=== PATIENT | female | born 1935 | race Caucasian/White ===

== ENCOUNTER 2016-05-19 08:52 | Emergency (ER) | payer OTHER ==
[2016-05-19] MEDS ORDERED: ONDANSETRON 4 MG ORAL DISINTEGRATING TAB (S0181) As Ordered ONE (09:56)
[2016-05-19] MEDS ORDERED: MECLIZINE 12.5 MG TAB As Ordered ONE (09:56)
[2016-05-19 10:15] LABS: BASO # 0.1 K/mm3 (0.0-0.2); BASO % 0.8 % (0.0-1.0); EOS # 0.1 K/mm3 (0.0-0.50); EOS % 1.1 % (0.0-3.0); LARGE UNSTAINED CELL # 0.1 K/mm3 (0.0-0.4); LARGE UNSTAINED CELL % 0.8 % (0.0-4.0); LYMPH # 1.9 K/mm3 (1.5-4.5); LYMPH % 17.6 % (24.0-44.0); MEAN CORPUSCULAR HEMOGLOBIN 29.5 pg (27.0-33.0); MEAN CORPUSCULAR HGB CONC 33.2 g/dl (32.0-36.5); MEAN CORPUSCULAR VOLUME 88.8 fl (80.0-96.0); MONO # 0.4 K/mm3 (0.0-0.8); MONO % 3.4 % (0.0-5.0); NEUTROPHILS % 76.3 % (36.0-66.0); PLATELET COUNT, AUTOMATED 247 k/mm3 (150-450); RED CELL DISTRIBUTION WIDTH 13.6 % (11.5-14.5); WHITE BLOOD COUNT 10.5 K/mm3 (4.0-10.0)
[2016-05-19 10:39] LABS: ANION GAP 9 MEQ/L (8-16); BLOOD UREA NITROGEN 19 MG/DL (7-18); CALCIUM LEVEL 9.4 MG/DL (8.8-10.2); CARBON DIOXIDE LEVEL 27 MEQ/L (21-32); CHLORIDE LEVEL 106 MEQ/L (98-107); CREATININE FOR GFR 0.92 MG/DL (0.55-1.02); FREE T4 1.56 NG/DL (0.76-1.46); GLOMERULAR FILTRATION RATE > 60.0 (>32); GLUCOSE, FASTING 149 MG/DL (83-110); POTASSIUM SERUM 3.7 MEQ/L (3.5-5.1); SODIUM LEVEL 142 MEQ/L (136-145)
--- NOTE | 2016-05-19 11:26 | REP ---
CT HEAD WITHOUT CONTRAST: HISTORY: Vertigo. An area of decreased attenuation is present in the left basal ganglia. This represents an old lacunar infarction. Areas of decreased attenuation are present in the periventricular white matter. This represents small vessel ischemic disease. There is no intraparenchymal hemorrhage, mass or midline shift. The ventricular system and cortical sulci as well as subarachnoid space in the posterior fossa are dilated consistent with mild volume loss. There is no extracerebral collection. Mucosal thickening is present in the left maxillary sinus. IMPRESSION: 1. Old left basal ganglia lacunar infarction. 2. Small vessel ischemic disease. 3. Mild volume loss. Signed by Preet Huang MD 05/19/2016 11:27 A
--- NOTE | 2016-05-19 14:05 | EDDOCDS ---
Nurse's Notes [facility] Name: Nika Steele Age: 81 yrs Sex: Female : 1935 Arrival Date: 05/19/2016 Time: 08:52 Bed 9 Private MD: Diagnosis: Labyrinthitis;Essential (primary) hypertension Presentation: 05/19 08:53 Presenting complaint: Patient states: states that she felt dizzy when she stood up from ml6 bed and felt dizzy, happened again today, lasted a few minutes but today states that she felt nauseated also (no LOC or vomiting). Adult Sepsis Screening: The patient does not have new or worsening altered mentation. Patient's respiratory rate is less than 22. Systolic blood pressure is greater than 100. Patient has a qSOFA score of 0- Negative Sepsis Screen. Suicide/Homicide risk assessment- the patient denies having any suicidal and/or homicidal ideations and does not present with any other emotional, behavioral or mental health complaints. Status: Patient is not a coordinator cardiopulmonary services or dependent. Transition of care: patient was not received from another setting of care. 08:53 Acuity: PATY Level 3 ml6 08:53 Method Of Arrival: Ambulance ml6 Triage Assessment: 08:56 General: Appears in no apparent distress, Behavior is appropriate for age, cooperative. ml6 Pain: Denies pain. The patient is triaged at the bedside. See Assessment in Nurses Notes section of ED record. Neurological: No deficits noted. Level of Consciousness is awake, alert, Oriented to person, place, time, Electrical Accessories I Assembler are equal bilaterally Moves all extremities. Full function Gait is steady, Speech is normal, Facial symmetry appears normal, Pupils are PERRLA. Cardiovascular: No deficits noted. Capillary refill < 3 seconds is brisk in bilateral fingers toes Heart tones S1 S2 present Edema is absent. Pulses are all present. Rhythm is regular Chest pain is denied. Respiratory: No deficits noted. Airway is patent Respiratory effort is even, unlabored, Respiratory pattern is regular, symmetrical, Breath sounds are clear bilaterally. GI: No deficits noted. Abdomen is flat, non- distended Bowel sounds present X 4 quads. Abd is soft and non tender X 4 quads. Historical: - Allergies: SULFA (SULFONAMIDES); - Home Meds: 1. Synthroid 112 mcg Oral tab 1 tab nightly (Last dose: 05/18/2016 20:00) 2. lisinopril 10 mg Oral tab 1 tab nightly (Last dose: 05/18/2016 20:00) 3. amlodipine 5 mg Oral tab 1 tab once daily (Last dose: 05/18/2016 08:00) 4. magnesium oxide 400 mg Oral tab daily (Last dose: 05/18/2016 08:00) 5. omeprazole 20 mg Oral cpDR 1 cap once daily (Last dose: 05/18/2016 08:00) 6. Cosopt 22.3-6.8 mg/mL Opht drop 1 drop 2 times per day (Last dose: 05/18/2016 20:00) 7. Xalatan 0.005 % Opht drop 1 drop once daily (Last dose: 05/18/2016 20:00) 8. Systane 0.4-0.3 % ophthalmic drop twice a day (Last dose: 05/18/2016 20:00) - PMHx: Hypertension; GERD; Hypothyroidism; Glaucoma; - PSHx: Appendectomy; Thyroidectomy; skin cancer; Cataract Surgery- Bilateral; - The history from nurses notes was reviewed: and I agree with what is documented. - Social history: Smoking status: Patient states was never smoker of tobacco. No barriers to communication noted, Speaks appropriately for age. - : The pt / caregiver states he / she is not on anticoagulants. Home medication list is obtained from the patient. - Hospitalizations: : No recent hospitalization is reported. - Exposure Risk Screening:: None identified. - Immunization history:: All immunizations up-to-date. - Family history: Not pertinent. - Social history:: the patient is a non-smoker, the patient does not drink alcohol. Screenin:50 Screening information is obtained from the patient. Fall risk: No risks identified. ml6 Assistance ADL's: requires no assistance with activities of daily living. Abuse/DV Screen: The patient / caregiver reports he/she is: not in a situation that causes fear, pain or injury. Nutritional screening: No deficits noted. Advance Directives: Currently, there is no health care proxy. home support is adequate. Assessment: 08:53 General: see triage. ml6 10:00 General: Appears in no apparent distress, comfortable, Behavior is appropriate for age, ml6 cooperative. Pain: Denies pain. Neurological: No deficits noted. Level of Consciousness is awake, alert, Oriented to person, place, time, Electrical Accessories I Assembler are equal bilaterally Moves all extremities. Full function Gait is steady, Speech is normal, Facial symmetry appears normal, Pupils are PERRLA. Cardiovascular: No deficits noted. Capillary refill < 3 seconds is brisk in bilateral fingers toes Heart tones S1 S2 present Edema is absent. Pulses are all present. Respiratory: No deficits noted. Airway is patent Respiratory effort is even, unlabored, Respiratory pattern is regular, symmetrical, Breath sounds are clear bilaterally. GI: No deficits noted. Abdomen is flat, Bowel sounds present X 4 quads. 11:52 General: pt ambulated 100 feet without difficulty. Pt reports her dizziness is much dsf better and nausea has resolved. pt sitting up in the stretcher eating a box lunch . 12:47 General: Appears pt ate 100% of lunch. pt denies nausea or pain . dsf 13:47 Adult Sepsis Screening: The patient does not have new or worsening altered mentation. dsf Patient's respiratory rate is less than 22. Systolic blood pressure is greater than 100. Patient has a qSOFA score of 0- Negative Sepsis Screen. General: Appears in no apparent distress, comfortable, Behavior is appropriate for age, cooperative. Neurological: Level of Consciousness is awake, alert. Cardiovascular: Capillary refill < 3 seconds. Respiratory: Airway is patent Respiratory effort is even, unlabored, Respiratory pattern is regular, symmetrical. Derm: Skin is pink, warm & dry. 14:02 General: Appears in no apparent distress, comfortable, Behavior is appropriate for age, dsf cooperative. Neurological: Level of Consciousness is awake, alert. Cardiovascular: Capillary refill < 3 seconds. Respiratory: Airway is patent Respiratory effort is even, unlabored, Respiratory pattern is regular, symmetrical. Derm: Skin is pink, warm & dry. Vital Signs: 08:56 BP 216 / 84 Supine (auto/); Pulse 66; Resp 18; Temp 96.8(O); Pulse Ox 98% on R/A; ml6 Weight 77.11 kg (R); Height 5 ft. 3 in. (160.02 cm) (R); Pain 0/10; 08:58 BP 193 / 80 Sitting (auto/); Pulse 68; ml6 08:59 BP 202 / 79 Standing (auto/); Pulse 72; ml6 11:01 BP 178 / 85 (auto/); dsf 11:01 Pulse 62 MON; Pulse Ox 92% ; dsf 11:01 BP 189 / 77; Pulse 62; Resp 16; Temp 97.4(O); Pulse Ox 98% on R/A; Pain 0/10; dsf 11:31 BP 205 / 79 (auto/); dsf 11:31 Pulse 58 MON; Pulse Ox 99% ; dsf 13:42 BP 181 / 75; Pulse 86; Resp 16; Temp 97.7(O); Pulse Ox 98% on R/A; jo3 08:56 Body Mass Index 30.11 (77.11 kg, 160.02 cm) ml6 Vitals: 09:10 Log In Time N/A - ambulance arrival. ml6 ED Course: 08:53 Patient visited by Blessing Aguilar, Test Examiner. deg 08:53 Estelle Clements,RN is Primary Nurse. ml6 08:53 Jered Meadows, RN is Primary Nurse. ml6 08:53 Patient moved to Waiting deg 08:53 Patient moved to 9 ml6 08:53 Inserted peripheral IV: 20gauge IV in left forearm and blood collected. Patient ml6 tolerated the procedure well. 09:04 Triage Initiated ml6 09:10 Patient visited by Ximena Gee. dem1 09:10 EKG done. (by ED staff). Reviewed by Ankush Foss MD. dem1 09:35 Primary Nurse role handed off by Estelle Clements,ARIES pc 09:36 Ankush Foss MD is Attending Physician. pc 09:41 Patient visited by David Miner DO. gk1 09:50 Patient visited by Ankush Foss MD. pc 10:11 TSH with Free T4 Sent. ml6 10:11 MED Profile Sent. ml6 10:11 CBC with Diff Sent. ml6 10:11 Troponin Sent. ml6 10:16 Patient visited by Jered Meadows, ARIES. ml6 10:40 Patient visited by Jered Meadows RN. ml6 11:03 [facility] Payment Agreement was scanned into Direct Access Software and attached to record. mm15 11:11 Patient visited by Jered Meadows, ARIES. ml6 11:37 CT Head Without Contrast Returned. EDMS 11:56 Patient visited by Tia Nagel,ARIES. dsf 12:48 Patient visited by Tia Nagel RN. dsf 13:49 Kevin Herzog PA is Referral Physician. pc 14:03 The patient / caregiver is instructed regarding the plan of care and ED course. dsf 14:03 Discontinued lock intact, bleeding controlled, pressure dressing applied, No dsf redness/swelling at site. No procedures done that require assistance. Administered Medications: 09:53 Drug: Ondansetron ODT 4 mg [ondansetron 4 mg disintegrating tablet (1 tabs)] Route: PO; ml6 09:53 Drug: Meclizine 25 mg [meclizine 12.5 mg tablet (2 tabs)] Route: PO; ml6 Order Results: Lab Order: CBC with Diff; SPEC'M 05/19/16 10:08 Test: WHITE BLOOD COUNT; Value: 10.5; Range: 4.0-10.0; Abnormal: Above high normal; Units: K/mm3; Status: F Test: RED BLOOD COUNT; Value: 5.52; Range: 4.00-5.40; Abnormal: Above high normal; Units: M/mm3; Status: F Test: HEMOGLOBIN; Value: 16.3; Range: 12.0-16.0; Abnormal: Above high normal; Units: g/dl; Status: F Test: HEMATOCRIT; Value: 49.0; Range: 36.0-47.0; Abnormal: Above high normal; Units: %; Status: F Test: MEAN CORPUSCULAR VOLUME; Value: 88.8; Range: 80.0-96.0; Units: fl; Status: F Test: MEAN CORPUSCULAR HEMOGLOBIN; Value: 29.5; Range: 27.0-33.0; Units: pg; Status: F Test: MEAN CORPUSCULAR HGB CONC; Value: 33.2; Range: 32.0-36.5; Units: g/dl; Status: F Test: RED CELL DISTRIBUTION WIDTH; Value: 13.6; Range: 11.5-14.5; Units: %; Status: F Test: PLATELET COUNT, AUTOMATED; Value: 247; Range: 150-450; Units: k/mm3; Status: F Test: NEUTROPHILS %; Value: 76.3; Range: 36.0-66.0; Abnormal: Above high normal; Units: %; Status: F Test: LYMPH %; Value: 17.6; Range: 24.0-44.0; Abnormal: Below low normal; Units: %; Status: F Test: MONO %; Value: 3.4; Range: 0.0-5.0; Units: %; Status: F Test: EOS %; Value: 1.1; Range: 0.0-3.0; Units: %; Status: F Test: BASO %; Value: 0.8; Range: 0.0-1.0; Units: %; Status: F Test: LARGE UNSTAINED CELL %; Value: 0.8; Range: 0.0-4.0; Units: %; Status: F Test: NEUTROPHILS #; Value: 8.0; Range: 1.8-7.7; Abnormal: Above high normal; Units: K/mm3; Status: F Test: LYMPH #; Value: 1.9; Range: 1.5-4.5; Units: K/mm3; Status: F Test: MONO #; Value: 0.4; Range: 0.0-0.8; Units: K/mm3; Status: F Test: EOS #; Value: 0.1; Range: 0.0-0.50; Units: K/mm3; Status: F Test: BASO #; Value: 0.1; Range: 0.0-0.2; Units: K/mm3; Status: F Test: LARGE UNSTAINED CELL #; Value: 0.1; Range: 0.0-0.4; Units: K/mm3; Status: F Lab Order: [facility]; [facility] 05/19/16 10:08 Test: GLUCOSE, FASTING; Value: 149; Range: 83-110; Abnormal: Above high normal; Units: MG/DL; Status: F Test: BLOOD UREA NITROGEN; Value: 19; Range: 7-18; Abnormal: Above high normal; Units: MG/DL; Status: F Test: CREATININE FOR GFR; Value: 0.92; Range: 0.55-1.02; Units: MG/DL; Status: F Test: GLOMERULAR FILTRATION RATE; Value: > 60.0; Range: >32; Status: F Test: SODIUM LEVEL; Value: 142; Range: 136-145; Units: MEQ/L; Status: F Test: POTASSIUM SERUM; Value: 3.7; Range: 3.5-5.1; Units: MEQ/L; Status: F Test: CHLORIDE LEVEL; Value: 106; Range: 98-107; Units: MEQ/L; Status: F Test: CARBON DIOXIDE LEVEL; Value: 27; Range: 21-32; Units: MEQ/L; Status: F Test: ANION GAP; Value: 9; Range: 8-16; Units: MEQ/L; Status: F Test: CALCIUM LEVEL; Value: 9.4; Range: 8.8-10.2; Units: MG/DL; Status: F Test Note: ; Units are mL/min/1.73 m2 Chronic Kidney Disease Staging per NKF: Stage I & II GFR >=60 Normal to Mildly Decreased Stage III GFR 30-59 Moderately Decreased Stage IV GFR 15-29 Severely Decreased Stage V GFR <15 Very Little GFR Left ESRD GFR <15 on PSYCHIATRIC ORDERLY Lab Order: TSH with Free T4; 05/19/16 10:08 Test: THYROID STIMULATING HORMONE; Value: 0.875; Range: 0.358-3.740; Units: uIU/ML; Status: F Test: FREE T4; Value: 1.56; Range: 0.76-1.46; Abnormal: Above high normal; Units: NG/DL; Status: F Lab Order: CIP; 05/19/16 10:08 Test: CPK CREATINE PHOSPHOKINASE; Value: 42; Range: 26-192; Units: U/L; Status: F Test: CK-MB VALUE MASS; Value: 1.0; Range: 0.0-3.6; Units: NG/ML; Status: F Test: MB/CK RELATIVE INDEX; Value: 2.38; Range: < OR =4; Status: F Test Note: ; DIAGNOSIS CRITERIA MMB ng/ml Relative Index (RI) NON-AMI < or = 5 N/A FOWLER ZONE > 5 < or = 4 AMI > 5 > 4 Lab Order: Troponin; 05/19/16 10:08 Test: TROPONIN I; Value: < 0.02; Range: < 0.10; Units: NG/ML; Status: F Test Note: ; Troponin I Reference Interval for [employer] LOCI: 99th Percentile= 0.00-0.045 ng/ml Risk Stratification: <= 0.10 ng/ml Decreased Risk for Adverse Clinical Events. 0.10-1.50 ng/ml Increased Risk for Adverse Clinical Events. Evaluation of additional criterion and/or repeat testing in 2-6 hours is suggested to rule out myocardial damage. >= 1.50 ng/ml Indicative of Myocardial Injury. Radiology Order: CT Head Without Contrast Test: CT Head Without Contrast REASON FOR EXAMINATION: vertigo; CT HEAD WITHOUT CONTRAST:; ; HISTORY: Vertigo.; ; An area of decreased attenuation is present in the left basal ganglia. This; represents an old lacunar infarction. Areas of decreased attenuation are present; in the periventricular white matter. This represents small vessel ischemic; disease. There is no intraparenchymal hemorrhage, mass or midline shift. The; ventricular system and cortical sulci as well as subarachnoid space in the; posterior fossa are dilated consistent with mild volume loss. There is no; extracerebral collection. Mucosal thickening is present in the left maxillary; sinus.; ; IMPRESSION:; ; 1. Old left basal ganglia lacunar infarction.; ; 2. Small vessel ischemic disease.; ; 3. Mild volume loss.; ; ; Signed by; Preet Huang MD 05/19/2016 11:27 A; Outcome: 13:49 Discharge ordered by Provider. pc 14:03 Discharge Assessment: Patient awake, alert and oriented x 3. No cognitive and/or dsf functional deficits noted. Patient verbalized understanding of disposition instructions. patient administered narcotics - no. The following High Risk Discharge criteria are identified: None. Discharged to home ambulatory. Condition: stable. Discharge instructions given to patient, Instructed on discharge instructions, follow up and referral plans. medication usage, Demonstrated understanding of instructions, medications, Pt was receptive of discharge instructions/ teaching. Prescriptions given X 2. Property sent home with patient. 14:03 CT Study completed. dsf 14:04 Patient left the ED. dsf Signatures: Dispatcher [employer] EDMS Ankush Foss MD MD pc Blessing Aguilar, Test Examiner Unit deg Shira WilkesRN RN Jered Medina RN RN ml6 Tia Nagel RN RN dsf Ximena Gee dem1 Sarah Warren mm15 David Miner, DO BERRY gk1 MTDD
--- NOTE | 2016-05-19 14:05 | EDDOCDS ---
Physician Documentation [facility] Name: Nika Steele Age: 81 yrs Sex: Female : 1935 Arrival Date: 05/19/2016 Time: 08:52 Bed 9 Private MD: Disposition: 05/19 12:42 Critical Care: Critical care not applicable. pc Disposition: 05/19/16 13:49 Discharged to Home/Self Care. Impression: Labyrinthitis, Essential (primary) hypertension. - Condition is Stable. - Discharge Instructions: Hypertension, Labyrinthitis, [id number]. - Prescriptions for Antivert 25 mg Oral Tablet - take 1 tablet by ORAL route every 8 hours As needed; 15 tablet. ZOFRAN ODT 4 mg - dissolve 1 tablet by ORAL route 4 times per day As needed do not chew, do not swallow whole; 10 tablet. - Medication Reconciliation, Local Pharmacy Hours form. - Follow up: Kevin Herzog; When: Call to arrange an appointment; Reason: Continuance of care. - Problem is new. - Symptoms have improved. HPI: 10:08 This 81 yrs old Female presents to ER via Ambulance with complaints of pc Dizziness. 10:08 The history is obtained from the patient. She stood up from bed yesterday morning and pc felt dizzy. She sat back down and "gathered myself", and was fine for the rest of the day. This morning, she rolled over in bed and became very dizzy and nauseated. She did not vomit. She lay still and the symptoms settled but not completely. She tried to stand and felt dizzy and nauseated, fell back onto the bed. She was able to walk to the bathroom but felt off-balance generally. After voiding, she used her 's walker to get around and felt fine, [id number]. She describes a "slight headache" frontally but denies any focal neurological symptoms. At their worst, the symptoms were moderate. In the emergency department, the symptoms are mild. The patient has not experienced similar symptoms in the past. The patient has not recently seen a physician. Historical: - Allergies: SULFA (SULFONAMIDES); - Home Meds: 1. Synthroid 112 mcg Oral tab 1 tab nightly (Last dose: 05/18/2016 20:00) 2. lisinopril 10 mg Oral tab 1 tab nightly (Last dose: 05/18/2016 20:00) 3. amlodipine 5 mg Oral tab 1 tab once daily (Last dose: 05/18/2016 08:00) 4. magnesium oxide 400 mg Oral tab daily (Last dose: 05/18/2016 08:00) 5. omeprazole 20 mg Oral cpDR 1 cap once daily (Last dose: 05/18/2016 08:00) 6. Cosopt 22.3-6.8 mg/mL Opht drop 1 drop 2 times per day (Last dose: 05/18/2016 20:00) 7. Xalatan 0.005 % Opht drop 1 drop once daily (Last dose: 05/18/2016 20:00) 8. Systane 0.4-0.3 % ophthalmic drop twice a day (Last dose: 05/18/2016 20:00) - PMHx: Hypertension; GERD; Hypothyroidism; Glaucoma; - PSHx: Appendectomy; Thyroidectomy; skin cancer; Cataract Surgery- Bilateral; - The history from nurses notes was reviewed: and I agree with what is documented. - Social history: Smoking status: Patient states was never smoker of tobacco. No barriers to communication noted, Speaks appropriately for age. - : The pt / caregiver states he / she is not on anticoagulants. Home medication list is obtained from the patient. - Hospitalizations: : No recent hospitalization is reported. - Exposure Risk Screening:: None identified. - Immunization history:: All immunizations up-to-date. - Family history: Not pertinent. - Social history:: the patient is a non-smoker, the patient does not drink alcohol. ROS: 10:08 All systems are negative except as listed. pc Exam: 10:08 General Appearance: no acute distress, alert. pc 10:08 EENT: normal eye inspection, ears, nose and throat normal, pharynx normal, mucous membranes moist no apparent trauma. 10:08 Neck: The exam reveals no acute abnormalities. ROM is normal and painless. No nuchal rigidity is noted.. 10:08 Respiratory: no respiratory distress, normal breath sounds, chest non-tender. 10:08 CVS: regular pulse rate, regular rhythm, normal S1 and S2, no murmurs, strong peripheral pulses, normal capillary refill. 10:08 Abdomen: soft, non-tender, no organomegaly, normal bowel sounds, no masses appreciated, no hernias palpated with/without gravity or Valsalva 10:08 Back: normal inspection. 10:08 : bladder is non-distended, non-tender. 10:08 Skin: skin color is normal, warm, dry. 10:08 Extremities: The extremities have a grossly normal appearance, are non-tender, without acute ROM abnormalities, no pedal edema. 10:08 Neuro: oriented x 3, cranial nerves normal as tested, no motor deficits, no sensory deficits, Cerebellar function: normal finger to nose testing, Romberg testing is negative, Deep tendon reflexes are normal, normal upgoing toes are appreciated bilaterally. 10:08 Psych: normal mood. Vital Signs: 08:56 BP 216 / 84 Supine (auto/); Pulse 66; Resp 18; Temp 96.8(O); Pulse Ox 98% on R/A; ml6 Weight 77.11 kg / 170 lbs (R); Height 5 ft. 3 in. (160.02 cm) (R); Pain 0/10; 08:58 BP 193 / 80 Sitting (auto/); Pulse 68; ml6 08:59 BP 202 / 79 Standing (auto/); Pulse 72; ml6 11:01 BP 178 / 85 (auto/); dsf 11:01 Pulse 62 MON; Pulse Ox 92% ; dsf 11:01 BP 189 / 77; Pulse 62; Resp 16; Temp 97.4(O); Pulse Ox 98% on R/A; Pain 0/10; dsf 11:31 BP 205 / 79 (auto/); dsf 11:31 Pulse 58 MON; Pulse Ox 99% ; dsf 13:42 BP 181 / 75; Pulse 86; Resp 16; Temp 97.7(O); Pulse Ox 98% on R/A; jo3 08:56 Body Mass Index 30.11 (77.11 kg, 160.02 cm) ml6 MDM: 09:03 ECG WITH READING ER PHYS+CARDIAG ordered. EDMS 09:51 Primary School Teacher Librarian/Pulse Ox/q 30 min VS ordered. pc 09:51 Ondansetron ODT Oral Disintegrating Tablet 4 mg PO once ordered. pc 09:52 Meclizine 25 mg PO once ordered. pc 09:52 CBC with Diff Ordered. EDMS 09:52 MED Profile Ordered. EDMS 09:52 TSH with Free T4 Ordered. EDMS 09:52 CIP Ordered. EDMS 09:52 Troponin Ordered. EDMS 09:52 CT Head Without Contrast Ordered. EDMS 10:00 Financial registration complete. mm15 10:08 Differential Diagnosis: labyrinthitis, vertigo, cerebellar CVA unlikely. Plan: labs, pc meds, imaging, EKG. Test interpretation: EKG. 10:47 CBC with Diff Reviewed. pc 10:47 MED Profile Reviewed. pc 10:47 TSH with Free T4 Reviewed. pc 10:47 CIP Reviewed. pc 10:47 Troponin Reviewed. pc 11:03 [facility] Payment Agreement was scanned into [employer] and attached to record. mm15 11:41 Ambulate Patient to Assess Patient Safety ordered. pc 11:41 CT Head Without Contrast Reviewed. pc 12:42 Data reviewed: old medical records, vital signs, nurses notes, EKG(s), lab test pc results, all radiology studies and available results. Test interpretation: LAB - all labs as ordered have been reviewed, interpreted and considered in the overall management of the clinical presentation; interpreted by Radiologist and personally reviewed, Head CT; no acute disease. The patient has been re-examined and re-evaluated. The patient's symptoms have markedly improved after treatment, with her eating without any nausea, and she has ambulated independently without any dizziness or complaints. Disposition: The historical points, examination findings, and any diagnostic results supporting the provided diagnosis, were discussed with the patient or legal guardian. The need for outpatient follow up with the provider listed on their discharge instructions was discussed. They were encouraged to return to [facility], or the nearest ED, if symptoms worsen/persist, or for any other questions/concerns. 12:44 Vital Signs ordered. pc EC:08 Rate is 61 beats/min. Rhythm is regular, Normal Sinus Rhythm. QRS [place] is Normal. OR pc interval is normal. QRS interval is normal. QT interval is normal. No Q waves. T waves are Normal. No ST changes noted. Clinical impression: Normal Sinus Rhythm. Administered Medications: 09:53 Drug: Ondansetron ODT 4 mg [ondansetron 4 mg disintegrating tablet (1 tabs)] Route: PO; ml6 09:53 Drug: Meclizine 25 mg [meclizine 12.5 mg tablet (2 tabs)] Route: PO; ml6 Signatures: Dispatcher [employer] EDFL Ankush Foss, MD MD pc Lowe, Jered, RN RN ml6 Tia Nagel RN RN jaycobf Sarah Warren mm15 The chart was reviewed and I authenticate all verbal orders and agree with the evaluation and treatment provided.Attachments: 11:03 [facility] Payment Agreement mm15 MTDD
--- NOTE | 2016-05-20 15:10 | ECGEPIP ---
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
--- NOTE | 2016-05-21 15:05 | EDDOCDS ---
Physician Documentation [facility] Name: Nika Steele Age: 81 yrs Sex: Female : 1935 Arrival Date: 05/19/2016 Time: 08:52 Bed 9 Private MD: Disposition: 05/19 12:42 Critical Care: Critical care not applicable. pc Disposition: 05/19/16 13:49 Discharged to Home/Self Care. Impression: Labyrinthitis, Essential (primary) hypertension. - Condition is Stable. - Discharge Instructions: Hypertension, Labyrinthitis, [id number]. - Prescriptions for Antivert 25 mg Oral Tablet - take 1 tablet by ORAL route every 8 hours As needed; 15 tablet. ZOFRAN ODT 4 mg - dissolve 1 tablet by ORAL route 4 times per day As needed do not chew, do not swallow whole; 10 tablet. - Medication Reconciliation, Local Pharmacy Hours form. - Follow up: Kevin Herzog; When: Call to arrange an appointment; Reason: Continuance of care. - Problem is new. - Symptoms have improved. HPI: 10:08 This 81 yrs old Female presents to ER via Ambulance with complaints of pc Dizziness. 10:08 The history is obtained from the patient. She stood up from bed yesterday morning and pc felt dizzy. She sat back down and "gathered myself", and was fine for the rest of the day. This morning, she rolled over in bed and became very dizzy and nauseated. She did not vomit. She lay still and the symptoms settled but not completely. She tried to stand and felt dizzy and nauseated, fell back onto the bed. She was able to walk to the bathroom but felt off-balance generally. After voiding, she used her 's walker to get around and felt fine, [id number]. She describes a "slight headache" frontally but denies any focal neurological symptoms. At their worst, the symptoms were moderate. In the emergency department, the symptoms are mild. The patient has not experienced similar symptoms in the past. The patient has not recently seen a physician. Historical: - Allergies: SULFA (SULFONAMIDES); - Home Meds: 1. Synthroid 112 mcg Oral tab 1 tab nightly (Last dose: 05/18/2016 20:00) 2. lisinopril 10 mg Oral tab 1 tab nightly (Last dose: 05/18/2016 20:00) 3. amlodipine 5 mg Oral tab 1 tab once daily (Last dose: 05/18/2016 08:00) 4. magnesium oxide 400 mg Oral tab daily (Last dose: 05/18/2016 08:00) 5. omeprazole 20 mg Oral cpDR 1 cap once daily (Last dose: 05/18/2016 08:00) 6. Cosopt 22.3-6.8 mg/mL Opht drop 1 drop 2 times per day (Last dose: 05/18/2016 20:00) 7. Xalatan 0.005 % Opht drop 1 drop once daily (Last dose: 05/18/2016 20:00) 8. Systane 0.4-0.3 % ophthalmic drop twice a day (Last dose: 05/18/2016 20:00) - PMHx: Hypertension; GERD; Hypothyroidism; Glaucoma; - PSHx: Appendectomy; Thyroidectomy; skin cancer; Cataract Surgery- Bilateral; - The history from nurses notes was reviewed: and I agree with what is documented. - Social history: Smoking status: Patient states was never smoker of tobacco. No barriers to communication noted, Speaks appropriately for age. - : The pt / caregiver states he / she is not on anticoagulants. Home medication list is obtained from the patient. - Hospitalizations: : No recent hospitalization is reported. - Exposure Risk Screening:: None identified. - Immunization history:: All immunizations up-to-date. - Family history: Not pertinent. - Social history:: the patient is a non-smoker, the patient does not drink alcohol. ROS: 10:08 All systems are negative except as listed. pc Exam: 10:08 General Appearance: no acute distress, alert. pc 10:08 EENT: normal eye inspection, ears, nose and throat normal, pharynx normal, mucous membranes moist no apparent trauma. 10:08 Neck: The exam reveals no acute abnormalities. ROM is normal and painless. No nuchal rigidity is noted.. 10:08 Respiratory: no respiratory distress, normal breath sounds, chest non-tender. 10:08 CVS: regular pulse rate, regular rhythm, normal S1 and S2, no murmurs, strong peripheral pulses, normal capillary refill. 10:08 Abdomen: soft, non-tender, no organomegaly, normal bowel sounds, no masses appreciated, no hernias palpated with/without gravity or Valsalva 10:08 Back: normal inspection. 10:08 : bladder is non-distended, non-tender. 10:08 Skin: skin color is normal, warm, dry. 10:08 Extremities: The extremities have a grossly normal appearance, are non-tender, without acute ROM abnormalities, no pedal edema. 10:08 Neuro: oriented x 3, cranial nerves normal as tested, no motor deficits, no sensory deficits, Cerebellar function: normal finger to nose testing, Romberg testing is negative, Deep tendon reflexes are normal, normal upgoing toes are appreciated bilaterally. 10:08 Psych: normal mood. Vital Signs: 08:56 BP 216 / 84 Supine (auto/); Pulse 66; Resp 18; Temp 96.8(O); Pulse Ox 98% on R/A; ml6 Weight 77.11 kg / 170 lbs (R); Height 5 ft. 3 in. (160.02 cm) (R); Pain 0/10; 08:58 BP 193 / 80 Sitting (auto/); Pulse 68; ml6 08:59 BP 202 / 79 Standing (auto/); Pulse 72; ml6 11:01 BP 178 / 85 (auto/); dsf 11:01 Pulse 62 MON; Pulse Ox 92% ; dsf 11:01 BP 189 / 77; Pulse 62; Resp 16; Temp 97.4(O); Pulse Ox 98% on R/A; Pain 0/10; dsf 11:31 BP 205 / 79 (auto/); dsf 11:31 Pulse 58 MON; Pulse Ox 99% ; dsf 13:42 BP 181 / 75; Pulse 86; Resp 16; Temp 97.7(O); Pulse Ox 98% on R/A; jo3 08:56 Body Mass Index 30.11 (77.11 kg, 160.02 cm) ml6 MDM: 09:03 ECG WITH READING ER PHYS+CARDIAG ordered. EDMS 09:51 Torch Solderer/Pulse Ox/q 30 min VS ordered. pc 09:51 Ondansetron ODT Oral Disintegrating Tablet 4 mg PO once ordered. pc 09:52 Meclizine 25 mg PO once ordered. pc 09:52 CBC with Diff Ordered. EDMS 09:52 MED Profile Ordered. EDMS 09:52 TSH with Free T4 Ordered. EDMS 09:52 CIP Ordered. EDMS 09:52 Troponin Ordered. EDMS 09:52 CT Head Without Contrast Ordered. EDMS 10:00 Financial registration complete. mm15 10:08 Differential Diagnosis: labyrinthitis, vertigo, cerebellar CVA unlikely. Plan: labs, pc meds, imaging, EKG. Test interpretation: EKG. 10:47 CBC with Diff Reviewed. pc 10:47 MED Profile Reviewed. pc 10:47 TSH with Free T4 Reviewed. pc 10:47 CIP Reviewed. pc 10:47 Troponin Reviewed. pc 11:03 [facility] Payment Agreement was scanned into [employer] and attached to record. mm15 11:41 Ambulate Patient to Assess Patient Safety ordered. pc 11:41 CT Head Without Contrast Reviewed. pc 12:42 Data reviewed: old medical records, vital signs, nurses notes, EKG(s), lab test pc results, all radiology studies and available results. Test interpretation: LAB - all labs as ordered have been reviewed, interpreted and considered in the overall management of the clinical presentation; interpreted by Radiologist and personally reviewed, Head CT; no acute disease. The patient has been re-examined and re-evaluated. The patient's symptoms have markedly improved after treatment, with her eating without any nausea, and she has ambulated independently without any dizziness or complaints. Disposition: The historical points, examination findings, and any diagnostic results supporting the provided diagnosis, were discussed with the patient or legal guardian. The need for outpatient follow up with the provider listed on their discharge instructions was discussed. They were encouraged to return to [facility], or the nearest ED, if symptoms worsen/persist, or for any other questions/concerns. 12:44 Vital Signs ordered. pc EC:08 Rate is 61 beats/min. Rhythm is regular, Normal Sinus Rhythm. QRS [place] is Normal. [place] pc interval is normal. QRS interval is normal. QT interval is normal. No Q waves. T waves are Normal. No ST changes noted. Clinical impression: Normal Sinus Rhythm. Administered Medications: 09:53 Drug: Ondansetron ODT 4 mg [ondansetron 4 mg disintegrating tablet (1 tabs)] Route: PO; ml6 09:53 Drug: Meclizine 25 mg [meclizine 12.5 mg tablet (2 tabs)] Route: PO; ml6 Signatures: Dispatcher [employer] EDAZ Ankush Foss, MD MD pc Lowe, Jered, RN RN ml6 Tia Nagel RN RN jaycobf Sarah Warren mm15 The chart was reviewed and I authenticate all verbal orders and agree with the evaluation and treatment provided.Attachments: 11:03 [facility] Payment Agreement mm15 Chart Complete MTDD
--- NOTE | 2016-05-21 15:05 | EDDOCDS ---
Physician Documentation [facility] Name: Nika Steele Age: 81 yrs Sex: Female : 1935 Arrival Date: 05/19/2016 Time: 08:52 Bed 9 Private MD: Disposition: 05/19 12:42 Critical Care: Critical care not applicable. pc Disposition: 05/19/16 13:49 Discharged to Home/Self Care. Impression: Labyrinthitis, Essential (primary) hypertension. - Condition is Stable. - Discharge Instructions: Hypertension, Labyrinthitis, [id number]. - Prescriptions for Antivert 25 mg Oral Tablet - take 1 tablet by ORAL route every 8 hours As needed; 15 tablet. ZOFRAN ODT 4 mg - dissolve 1 tablet by ORAL route 4 times per day As needed do not chew, do not swallow whole; 10 tablet. - Medication Reconciliation, Local Pharmacy Hours form. - Follow up: Kevin Herzog; When: Call to arrange an appointment; Reason: Continuance of care. - Problem is new. - Symptoms have improved. HPI: 10:08 This 81 yrs old Female presents to ER via Ambulance with complaints of pc Dizziness. 10:08 The history is obtained from the patient. She stood up from bed yesterday morning and pc felt dizzy. She sat back down and "gathered myself", and was fine for the rest of the day. This morning, she rolled over in bed and became very dizzy and nauseated. She did not vomit. She lay still and the symptoms settled but not completely. She tried to stand and felt dizzy and nauseated, fell back onto the bed. She was able to walk to the bathroom but felt off-balance generally. After voiding, she used her 's walker to get around and felt fine, [id number]. She describes a "slight headache" frontally but denies any focal neurological symptoms. At their worst, the symptoms were moderate. In the emergency department, the symptoms are mild. The patient has not experienced similar symptoms in the past. The patient has not recently seen a physician. Historical: - Allergies: SULFA (SULFONAMIDES); - Home Meds: 1. Synthroid 112 mcg Oral tab 1 tab nightly (Last dose: 05/18/2016 20:00) 2. lisinopril 10 mg Oral tab 1 tab nightly (Last dose: 05/18/2016 20:00) 3. amlodipine 5 mg Oral tab 1 tab once daily (Last dose: 05/18/2016 08:00) 4. magnesium oxide 400 mg Oral tab daily (Last dose: 05/18/2016 08:00) 5. omeprazole 20 mg Oral cpDR 1 cap once daily (Last dose: 05/18/2016 08:00) 6. Cosopt 22.3-6.8 mg/mL Opht drop 1 drop 2 times per day (Last dose: 05/18/2016 20:00) 7. Xalatan 0.005 % Opht drop 1 drop once daily (Last dose: 05/18/2016 20:00) 8. Systane 0.4-0.3 % ophthalmic drop twice a day (Last dose: 05/18/2016 20:00) - PMHx: Hypertension; GERD; Hypothyroidism; Glaucoma; - PSHx: Appendectomy; Thyroidectomy; skin cancer; Cataract Surgery- Bilateral; - The history from nurses notes was reviewed: and I agree with what is documented. - Social history: Smoking status: Patient states was never smoker of tobacco. No barriers to communication noted, Speaks appropriately for age. - : The pt / caregiver states he / she is not on anticoagulants. Home medication list is obtained from the patient. - Hospitalizations: : No recent hospitalization is reported. - Exposure Risk Screening:: None identified. - Immunization history:: All immunizations up-to-date. - Family history: Not pertinent. - Social history:: the patient is a non-smoker, the patient does not drink alcohol. ROS: 10:08 All systems are negative except as listed. pc Exam: 10:08 General Appearance: no acute distress, alert. pc 10:08 EENT: normal eye inspection, ears, nose and throat normal, pharynx normal, mucous membranes moist no apparent trauma. 10:08 Neck: The exam reveals no acute abnormalities. ROM is normal and painless. No nuchal rigidity is noted.. 10:08 Respiratory: no respiratory distress, normal breath sounds, chest non-tender. 10:08 CVS: regular pulse rate, regular rhythm, normal S1 and S2, no murmurs, strong peripheral pulses, normal capillary refill. 10:08 Abdomen: soft, non-tender, no organomegaly, normal bowel sounds, no masses appreciated, no hernias palpated with/without gravity or Valsalva 10:08 Back: normal inspection. 10:08 : bladder is non-distended, non-tender. 10:08 Skin: skin color is normal, warm, dry. 10:08 Extremities: The extremities have a grossly normal appearance, are non-tender, without acute ROM abnormalities, no pedal edema. 10:08 Neuro: oriented x 3, cranial nerves normal as tested, no motor deficits, no sensory deficits, Cerebellar function: normal finger to nose testing, Romberg testing is negative, Deep tendon reflexes are normal, normal upgoing toes are appreciated bilaterally. 10:08 Psych: normal mood. Vital Signs: 08:56 BP 216 / 84 Supine (auto/); Pulse 66; Resp 18; Temp 96.8(O); Pulse Ox 98% on R/A; ml6 Weight 77.11 kg / 170 lbs (R); Height 5 ft. 3 in. (160.02 cm) (R); Pain 0/10; 08:58 BP 193 / 80 Sitting (auto/); Pulse 68; ml6 08:59 BP 202 / 79 Standing (auto/); Pulse 72; ml6 11:01 BP 178 / 85 (auto/); dsf 11:01 Pulse 62 MON; Pulse Ox 92% ; dsf 11:01 BP 189 / 77; Pulse 62; Resp 16; Temp 97.4(O); Pulse Ox 98% on R/A; Pain 0/10; dsf 11:31 BP 205 / 79 (auto/); dsf 11:31 Pulse 58 MON; Pulse Ox 99% ; dsf 13:42 BP 181 / 75; Pulse 86; Resp 16; Temp 97.7(O); Pulse Ox 98% on R/A; jo3 08:56 Body Mass Index 30.11 (77.11 kg, 160.02 cm) ml6 MDM: 09:03 ECG WITH READING ER PHYS+CARDIAG ordered. EDMS 09:51 Restorative Aide/Pulse Ox/q 30 min VS ordered. pc 09:51 Ondansetron ODT Oral Disintegrating Tablet 4 mg PO once ordered. pc 09:52 Meclizine 25 mg PO once ordered. pc 09:52 CBC with Diff Ordered. EDMS 09:52 MED Profile Ordered. EDMS 09:52 TSH with Free T4 Ordered. EDMS 09:52 CIP Ordered. EDMS 09:52 Troponin Ordered. EDMS 09:52 CT Head Without Contrast Ordered. EDMS 10:00 Financial registration complete. mm15 10:08 Differential Diagnosis: labyrinthitis, vertigo, cerebellar CVA unlikely. Plan: labs, pc meds, imaging, EKG. Test interpretation: EKG. 10:47 CBC with Diff Reviewed. pc 10:47 MED Profile Reviewed. pc 10:47 TSH with Free T4 Reviewed. pc 10:47 CIP Reviewed. pc 10:47 Troponin Reviewed. pc 11:03 [facility] Payment Agreement was scanned into [employer] and attached to record. mm15 11:41 Ambulate Patient to Assess Patient Safety ordered. pc 11:41 CT Head Without Contrast Reviewed. pc 12:42 Data reviewed: old medical records, vital signs, nurses notes, EKG(s), lab test pc results, all radiology studies and available results. Test interpretation: LAB - all labs as ordered have been reviewed, interpreted and considered in the overall management of the clinical presentation; interpreted by Radiologist and personally reviewed, Head CT; no acute disease. The patient has been re-examined and re-evaluated. The patient's symptoms have markedly improved after treatment, with her eating without any nausea, and she has ambulated independently without any dizziness or complaints. Disposition: The historical points, examination findings, and any diagnostic results supporting the provided diagnosis, were discussed with the patient or legal guardian. The need for outpatient follow up with the provider listed on their discharge instructions was discussed. They were encouraged to return to [facility], or the nearest ED, if symptoms worsen/persist, or for any other questions/concerns. 12:44 Vital Signs ordered. pc EC:08 Rate is 61 beats/min. Rhythm is regular, Normal Sinus Rhythm. QRS [place] is Normal. CT pc interval is normal. QRS interval is normal. QT interval is normal. No Q waves. T waves are Normal. No ST changes noted. Clinical impression: Normal Sinus Rhythm. Administered Medications: 09:53 Drug: Ondansetron ODT 4 mg [ondansetron 4 mg disintegrating tablet (1 tabs)] Route: PO; ml6 09:53 Drug: Meclizine 25 mg [meclizine 12.5 mg tablet (2 tabs)] Route: PO; ml6 Signatures: Dispatcher [employer] EDIL Ankush Foss, MD MD pc Lowe, Jered, RN RN ml6 Tia Nagel RN RN jaycobf Sarah Warren mm15 The chart was reviewed and I authenticate all verbal orders and agree with the evaluation and treatment provided.Attachments: 11:03 [facility] Payment Agreement mm15 Chart Complete MTDD
--- NOTE | 2016-05-21 15:05 | EDDOCDS ---
Nurse's Notes [facility] Name: Nika Steele Age: 81 yrs Sex: Female : 1935 Arrival Date: 05/19/2016 Time: 08:52 Bed 9 Private MD: Diagnosis: Labyrinthitis;Essential (primary) hypertension Presentation: 05/19 08:53 Presenting complaint: Patient states: states that she felt dizzy when she stood up from ml6 bed and felt dizzy, happened again today, lasted a few minutes but today states that she felt nauseated also (no LOC or vomiting). Adult Sepsis Screening: The patient does not have new or worsening altered mentation. Patient's respiratory rate is less than 22. Systolic blood pressure is greater than 100. Patient has a qSOFA score of 0- Negative Sepsis Screen. Suicide/Homicide risk assessment- the patient denies having any suicidal and/or homicidal ideations and does not present with any other emotional, behavioral or mental health complaints. Status: Patient is not a manager student services or dependent. Transition of care: patient was not received from another setting of care. 08:53 Acuity: PATY Level 3 ml6 08:53 Method Of Arrival: Ambulance ml6 Triage Assessment: 08:56 General: Appears in no apparent distress, Behavior is appropriate for age, cooperative. ml6 Pain: Denies pain. The patient is triaged at the bedside. See Assessment in Nurses Notes section of ED record. Neurological: No deficits noted. 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 Full function Gait is steady, Speech is normal, Facial symmetry appears normal, Pupils are PERRLA. Cardiovascular: No deficits noted. Capillary refill < 3 seconds is brisk in bilateral fingers toes Heart tones S1 S2 present Edema is absent. Pulses are all present. Rhythm is regular Chest pain is denied. Respiratory: No deficits noted. Airway is patent Respiratory effort is even, unlabored, Respiratory pattern is regular, symmetrical, Breath sounds are clear bilaterally. GI: No deficits noted. Abdomen is flat, non- distended Bowel sounds present X 4 quads. Abd is soft and non tender X 4 quads. Historical: - Allergies: SULFA (SULFONAMIDES); - Home Meds: 1. Synthroid 112 mcg Oral tab 1 tab nightly (Last dose: 05/18/2016 20:00) 2. lisinopril 10 mg Oral tab 1 tab nightly (Last dose: 05/18/2016 20:00) 3. amlodipine 5 mg Oral tab 1 tab once daily (Last dose: 05/18/2016 08:00) 4. magnesium oxide 400 mg Oral tab daily (Last dose: 05/18/2016 08:00) 5. omeprazole 20 mg Oral cpDR 1 cap once daily (Last dose: 05/18/2016 08:00) 6. Cosopt 22.3-6.8 mg/mL Opht drop 1 drop 2 times per day (Last dose: 05/18/2016 20:00) 7. Xalatan 0.005 % Opht drop 1 drop once daily (Last dose: 05/18/2016 20:00) 8. Systane 0.4-0.3 % ophthalmic drop twice a day (Last dose: 05/18/2016 20:00) - PMHx: Hypertension; GERD; Hypothyroidism; Glaucoma; - PSHx: Appendectomy; Thyroidectomy; skin cancer; Cataract Surgery- Bilateral; - The history from nurses notes was reviewed: and I agree with what is documented. - Social history: Smoking status: Patient states was never smoker of tobacco. No barriers to communication noted, Speaks appropriately for age. - : The pt / caregiver states he / she is not on anticoagulants. Home medication list is obtained from the patient. - Hospitalizations: : No recent hospitalization is reported. - Exposure Risk Screening:: None identified. - Immunization history:: All immunizations up-to-date. - Family history: Not pertinent. - Social history:: the patient is a non-smoker, the patient does not drink alcohol. Screenin:50 Screening information is obtained from the patient. Fall risk: No risks identified. ml6 Assistance ADL's: requires no assistance with activities of daily living. Abuse/DV Screen: The patient / caregiver reports he/she is: not in a situation that causes fear, pain or injury. Nutritional screening: No deficits noted. Advance Directives: Currently, there is no health care proxy. home support is adequate. Assessment: 08:53 General: see triage. ml6 10:00 General: Appears in no apparent distress, comfortable, Behavior is appropriate for age, ml6 cooperative. Pain: Denies pain. Neurological: No deficits noted. 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 Full function Gait is steady, Speech is normal, Facial symmetry appears normal, Pupils are PERRLA. Cardiovascular: No deficits noted. Capillary refill < 3 seconds is brisk in bilateral fingers toes Heart tones S1 S2 present Edema is absent. Pulses are all present. Respiratory: No deficits noted. Airway is patent Respiratory effort is even, unlabored, Respiratory pattern is regular, symmetrical, Breath sounds are clear bilaterally. GI: No deficits noted. Abdomen is flat, Bowel sounds present X 4 quads. 11:52 General: pt ambulated 100 feet without difficulty. Pt reports her dizziness is much dsf better and nausea has resolved. pt sitting up in the stretcher eating a box lunch . 12:47 General: Appears pt ate 100% of lunch. pt denies nausea or pain . dsf 13:47 Adult Sepsis Screening: The patient does not have new or worsening altered mentation. dsf Patient's respiratory rate is less than 22. Systolic blood pressure is greater than 100. Patient has a qSOFA score of 0- Negative Sepsis Screen. General: Appears in no apparent distress, comfortable, Behavior is appropriate for age, cooperative. Neurological: Level of Consciousness is awake, alert. Cardiovascular: Capillary refill < 3 seconds. Respiratory: Airway is patent Respiratory effort is even, unlabored, Respiratory pattern is regular, symmetrical. Derm: Skin is pink, warm & dry. 14:02 General: Appears in no apparent distress, comfortable, Behavior is appropriate for age, dsf cooperative. Neurological: Level of Consciousness is awake, alert. Cardiovascular: Capillary refill < 3 seconds. Respiratory: Airway is patent Respiratory effort is even, unlabored, Respiratory pattern is regular, symmetrical. Derm: Skin is pink, warm & dry. Vital Signs: 08:56 BP 216 / 84 Supine (auto/); Pulse 66; Resp 18; Temp 96.8(O); Pulse Ox 98% on R/A; ml6 Weight 77.11 kg (R); Height 5 ft. 3 in. (160.02 cm) (R); Pain 0/10; 08:58 BP 193 / 80 Sitting (auto/); Pulse 68; ml6 08:59 BP 202 / 79 Standing (auto/); Pulse 72; ml6 11:01 BP 178 / 85 (auto/); dsf 11:01 Pulse 62 MON; Pulse Ox 92% ; dsf 11:01 BP 189 / 77; Pulse 62; Resp 16; Temp 97.4(O); Pulse Ox 98% on R/A; Pain 0/10; dsf 11:31 BP 205 / 79 (auto/); dsf 11:31 Pulse 58 MON; Pulse Ox 99% ; dsf 13:42 BP 181 / 75; Pulse 86; Resp 16; Temp 97.7(O); Pulse Ox 98% on R/A; jo3 08:56 Body Mass Index 30.11 (77.11 kg, 160.02 cm) ml6 Vitals: 09:10 Log In Time N/A - ambulance arrival. ml6 ED Course: 08:53 Patient visited by Blessing Aguilar, Beer Coil Cleaner. deg 08:53 Estelle Clements,RN is Primary Nurse. ml6 08:53 Jered Meadows, RN is Primary Nurse. ml6 08:53 Patient moved to Waiting deg 08:53 Patient moved to 9 ml6 08:53 Inserted peripheral IV: 20gauge IV in left forearm and blood collected. Patient ml6 tolerated the procedure well. 09:04 Triage Initiated ml6 09:10 Patient visited by Ximena Gee. dem1 09:10 EKG done. (by ED staff). Reviewed by Ankush Foss MD. dem1 09:35 Primary Nurse role handed off by Estelle Clements,ARIES pc 09:36 Ankush Foss MD is Attending Physician. pc 09:41 Patient visited by David Miner DO. gk1 09:50 Patient visited by Ankush Foss MD. pc 10:11 TSH with Free T4 Sent. ml6 10:11 MED Profile Sent. ml6 10:11 CBC with Diff Sent. ml6 10:11 Troponin Sent. ml6 10:16 Patient visited by Jered Meadows, ARIES. ml6 10:40 Patient visited by Jered Meadows RN. ml6 11:03 [facility] Payment Agreement was scanned into [employer] and attached to record. mm15 11:11 Patient visited by Jered Meadows, ARIES. ml6 11:37 CT Head Without Contrast Returned. EDMS 11:56 Patient visited by Tia Nagel,ARIES. dsf 12:48 Patient visited by Tia Nagel RN. dsf 13:49 Kevin Herzog PA is Referral Physician. pc 14:03 The patient / caregiver is instructed regarding the plan of care and ED course. dsf 14:03 Discontinued lock intact, bleeding controlled, pressure dressing applied, No dsf redness/swelling at site. No procedures done that require assistance. 05/20 15:14 EKG-ADULT Returned. EDMS Administered Medications: 05/19 09:53 Drug: Ondansetron ODT 4 mg [ondansetron 4 mg disintegrating tablet (1 tabs)] Route: PO; ml6 09:53 Drug: Meclizine 25 mg [meclizine 12.5 mg tablet (2 tabs)] Route: PO; ml6 Order Results: Lab Order: CBC with Diff; SPEC'M 05/19/16 10:08 Test: WHITE BLOOD COUNT; Value: 10.5; Range: 4.0-10.0; Abnormal: Above high normal; Units: K/mm3; Status: F Test: RED BLOOD COUNT; Value: 5.52; Range: 4.00-5.40; Abnormal: Above high normal; Units: M/mm3; Status: F Test: HEMOGLOBIN; Value: 16.3; Range: 12.0-16.0; Abnormal: Above high normal; Units: g/dl; Status: F Test: HEMATOCRIT; Value: 49.0; Range: 36.0-47.0; Abnormal: Above high normal; Units: %; Status: F Test: MEAN CORPUSCULAR VOLUME; Value: 88.8; Range: 80.0-96.0; Units: fl; Status: F Test: MEAN CORPUSCULAR HEMOGLOBIN; Value: 29.5; Range: 27.0-33.0; Units: pg; Status: F Test: MEAN CORPUSCULAR HGB CONC; Value: 33.2; Range: 32.0-36.5; Units: g/dl; Status: F Test: RED CELL DISTRIBUTION WIDTH; Value: 13.6; Range: 11.5-14.5; Units: %; Status: F Test: PLATELET COUNT, AUTOMATED; Value: 247; Range: 150-450; Units: k/mm3; Status: F Test: NEUTROPHILS %; Value: 76.3; Range: 36.0-66.0; Abnormal: Above high normal; Units: %; Status: F Test: LYMPH %; Value: 17.6; Range: 24.0-44.0; Abnormal: Below low normal; Units: %; Status: F Test: MONO %; Value: 3.4; Range: 0.0-5.0; Units: %; Status: F Test: EOS %; Value: 1.1; Range: 0.0-3.0; Units: %; Status: F Test: BASO %; Value: 0.8; Range: 0.0-1.0; Units: %; Status: F Test: LARGE UNSTAINED CELL %; Value: 0.8; Range: 0.0-4.0; Units: %; Status: F Test: NEUTROPHILS #; Value: 8.0; Range: 1.8-7.7; Abnormal: Above high normal; Units: K/mm3; Status: F Test: LYMPH #; Value: 1.9; Range: 1.5-4.5; Units: K/mm3; Status: F Test: MONO #; Value: 0.4; Range: 0.0-0.8; Units: K/mm3; Status: F Test: EOS #; Value: 0.1; Range: 0.0-0.50; Units: K/mm3; Status: F Test: BASO #; Value: 0.1; Range: 0.0-0.2; Units: K/mm3; Status: F Test: LARGE UNSTAINED CELL #; Value: 0.1; Range: 0.0-0.4; Units: K/mm3; Status: F Lab Order: MED Profile; SPEC'M 05/19/16 10:08 Test: GLUCOSE, FASTING; Value: 149; Range: 83-110; Abnormal: Above high normal; Units: MG/DL; Status: F Test: BLOOD UREA NITROGEN; Value: 19; Range: 7-18; Abnormal: Above high normal; Units: MG/DL; Status: F Test: CREATININE FOR GFR; Value: 0.92; Range: 0.55-1.02; Units: MG/DL; Status: F Test: GLOMERULAR FILTRATION RATE; Value: > 60.0; Range: >32; Status: F Test: SODIUM LEVEL; Value: 142; Range: 136-145; Units: MEQ/L; Status: F Test: POTASSIUM SERUM; Value: 3.7; Range: 3.5-5.1; Units: MEQ/L; Status: F Test: CHLORIDE LEVEL; Value: 106; Range: 98-107; Units: MEQ/L; Status: F Test: CARBON DIOXIDE LEVEL; Value: 27; Range: 21-32; Units: MEQ/L; Status: F Test: ANION GAP; Value: 9; Range: 8-16; Units: MEQ/L; Status: F Test: CALCIUM LEVEL; Value: 9.4; Range: 8.8-10.2; Units: MG/DL; Status: F Test Note: ; Units are mL/min/1.73 m2 Chronic Kidney Disease Staging per NKF: Stage I & II GFR >=60 Normal to Mildly Decreased Stage III GFR 30-59 Moderately Decreased Stage IV GFR 15-29 Severely Decreased Stage V GFR <15 Very Little GFR Left ESRD GFR <15 on 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 Lab Order: TSH with Free T4; SPEC'05/19/16 10:08 Test: THYROID STIMULATING HORMONE; Value: 0.875; Range: 0.358-3.740; Units: uIU/ML; Status: F Test: FREE T4; Value: 1.56; Range: 0.76-1.46; Abnormal: Above high normal; Units: NG/DL; Status: F Lab Order: CIP; SPEC'05/19/16 10:08 Test: CPK CREATINE PHOSPHOKINASE; Value: 42; Range: 26-192; Units: U/L; Status: F Test: CK-MB VALUE MASS; Value: 1.0; Range: 0.0-3.6; Units: NG/ML; Status: F Test: MB/CK RELATIVE INDEX; Value: 2.38; Range: < OR =4; Status: F Test Note: ; DIAGNOSIS CRITERIA MMB ng/ml Relative Index (RI) NON-AMI < or = 5 N/A FOWLER ZONE > 5 < or = 4 AMI > 5 > 4 Lab Order: Troponin; SPEC'05/19/16 10:08 Test: TROPONIN I; Value: < 0.02; Range: < 0.10; Units: NG/ML; Status: F Test Note: ; Troponin I Reference Interval for Siemens [place] LOCI: 99th Percentile= 0.00-0.045 ng/ml Risk Stratification: <= 0.10 ng/ml Decreased Risk for Adverse Clinical Events. 0.10-1.50 ng/ml Increased Risk for Adverse Clinical Events. Evaluation of additional criterion and/or repeat testing in 2-6 hours is suggested to rule out myocardial damage. >= 1.50 ng/ml Indicative of Myocardial Injury. Radiology Order: EKG-ADULT Test: EKG-ADULT REASON FOR EXAMINATION: dizziness; Stationary ECG Study; [facility] - ED; ; Test Date: 2016-05-19; Pat Name: NIKA STEELE Department:; Room: -; Gender: F Perianesthesia Manager: herbert; : 1935 Requested By: Ankush Silveira; Order Number: [id number] Reading MD: Clarissa Calvo; Measurements; Intervals [place]; Rate: 61 P: 64; IL: 165 QRS: 37; QRSD: 102 T: 43; QT: 417; QTc: 421; Interpretive Statements; SINUS RHYTHM; NSTTW ABNORMALITY; NO PRIOR FOR COMPARISON; Electronically Signed On 05-20-2016 15:09:42 EST by Clarissa Calvo; Radiology Order: CT Head Without Contrast Test: CT Head Without Contrast REASON FOR EXAMINATION: vertigo; CT HEAD WITHOUT CONTRAST:; ; HISTORY: Vertigo.; ; An area of decreased attenuation is present in the left basal ganglia. This; represents an old lacunar infarction. Areas of decreased attenuation are present; in the periventricular white matter. This represents small vessel ischemic; disease. There is no intraparenchymal hemorrhage, mass or midline shift. The; ventricular system and cortical sulci as well as subarachnoid space in the; posterior fossa are dilated consistent with mild volume loss. There is no; extracerebral collection. Mucosal thickening is present in the left maxillary; sinus.; ; IMPRESSION:; ; 1. Old left basal ganglia lacunar infarction.; ; 2. Small vessel ischemic disease.; ; 3. Mild volume loss.; ; ; Signed by; Preet Huang MD 05/19/2016 11:27 A; Outcome: 13:49 Discharge ordered by Provider. 14:03 Discharge Assessment: Patient awake, alert and oriented x 3. No cognitive and/or dsf functional deficits noted. Patient verbalized understanding of disposition instructions. patient administered narcotics - no. The following High Risk Discharge criteria are identified: None. Discharged to home ambulatory. Condition: stable. Discharge instructions given to patient, Instructed on discharge instructions, follow up and referral plans. medication usage, Demonstrated understanding of instructions, medications, Pt was receptive of discharge instructions/ teaching. Prescriptions given X 2. Property sent home with patient. 14:03 CT Study completed. dsf 14:04 Patient left the ED. dsf Signatures: Dispatcher [employer] EDMS Ankush Foss MD MD pc Murray, Denise, Beer Coil Cleaner Unit deg Shira WilkesRN RN Jered Medina, RN RN [email or web address] Tia Nagel,ARIES RN dsf Ximena Gee1 Sarah Warren mm15 David Miner, DO gk1 Chart Complete MTDD
--- NOTE | 2016-05-21 20:45 | EDDOCDS ---
Physician Documentation [facility] Name: Nika Steele Age: 81 yrs Sex: Female : 1935 Arrival Date: 05/19/2016 Time: 08:52 Bed 9 Private MD: Disposition: 05/19 12:42 Critical Care: Critical care not applicable. pc Disposition: 05/19/16 13:49 Discharged to Home/Self Care. Impression: Labyrinthitis, Essential (primary) hypertension. - Condition is Stable. - Discharge Instructions: Hypertension, Labyrinthitis, [id number]. - Prescriptions for Antivert 25 mg Oral Tablet - take 1 tablet by ORAL route every 8 hours As needed; 15 tablet. ZOFRAN ODT 4 mg - dissolve 1 tablet by ORAL route 4 times per day As needed do not chew, do not swallow whole; 10 tablet. - Medication Reconciliation, Local Pharmacy Hours form. - Follow up: Kevin Herzog; When: Call to arrange an appointment; Reason: Continuance of care. - Problem is new. - Symptoms have improved. HPI: 10:08 This 81 yrs old Female presents to ER via Ambulance with complaints of pc Dizziness. 10:08 The history is obtained from the patient. She stood up from bed yesterday morning and pc felt dizzy. She sat back down and "gathered myself", and was fine for the rest of the day. This morning, she rolled over in bed and became very dizzy and nauseated. She did not vomit. She lay still and the symptoms settled but not completely. She tried to stand and felt dizzy and nauseated, fell back onto the bed. She was able to walk to the bathroom but felt off-balance generally. After voiding, she used her 's walker to get around and felt fine, [id number]. She describes a "slight headache" frontally but denies any focal neurological symptoms. At their worst, the symptoms were moderate. In the emergency department, the symptoms are mild. The patient has not experienced similar symptoms in the past. The patient has not recently seen a physician. Historical: - Allergies: SULFA (SULFONAMIDES); - Home Meds: 1. Synthroid 112 mcg Oral tab 1 tab nightly (Last dose: 05/18/2016 20:00) 2. lisinopril 10 mg Oral tab 1 tab nightly (Last dose: 05/18/2016 20:00) 3. amlodipine 5 mg Oral tab 1 tab once daily (Last dose: 05/18/2016 08:00) 4. magnesium oxide 400 mg Oral tab daily (Last dose: 05/18/2016 08:00) 5. omeprazole 20 mg Oral cpDR 1 cap once daily (Last dose: 05/18/2016 08:00) 6. Cosopt 22.3-6.8 mg/mL Opht drop 1 drop 2 times per day (Last dose: 05/18/2016 20:00) 7. Xalatan 0.005 % Opht drop 1 drop once daily (Last dose: 05/18/2016 20:00) 8. Systane 0.4-0.3 % ophthalmic drop twice a day (Last dose: 05/18/2016 20:00) - PMHx: Hypertension; GERD; Hypothyroidism; Glaucoma; - PSHx: Appendectomy; Thyroidectomy; skin cancer; Cataract Surgery- Bilateral; - The history from nurses notes was reviewed: and I agree with what is documented. - Social history: Smoking status: Patient states was never smoker of tobacco. No barriers to communication noted, Speaks appropriately for age. - : The pt / caregiver states he / she is not on anticoagulants. Home medication list is obtained from the patient. - Hospitalizations: : No recent hospitalization is reported. - Exposure Risk Screening:: None identified. - Immunization history:: All immunizations up-to-date. - Family history: Not pertinent. - Social history:: the patient is a non-smoker, the patient does not drink alcohol. ROS: 10:08 All systems are negative except as listed. pc Exam: 10:08 General Appearance: no acute distress, alert. pc 10:08 EENT: normal eye inspection, ears, nose and throat normal, pharynx normal, mucous membranes moist no apparent trauma. 10:08 Neck: The exam reveals no acute abnormalities. ROM is normal and painless. No nuchal rigidity is noted.. 10:08 Respiratory: no respiratory distress, normal breath sounds, chest non-tender. 10:08 CVS: regular pulse rate, regular rhythm, normal S1 and S2, no murmurs, strong peripheral pulses, normal capillary refill. 10:08 Abdomen: soft, non-tender, no organomegaly, normal bowel sounds, no masses appreciated, no hernias palpated with/without gravity or Valsalva 10:08 Back: normal inspection. 10:08 : bladder is non-distended, non-tender. 10:08 Skin: skin color is normal, warm, dry. 10:08 Extremities: The extremities have a grossly normal appearance, are non-tender, without acute ROM abnormalities, no pedal edema. 10:08 Neuro: oriented x 3, cranial nerves normal as tested, no motor deficits, no sensory deficits, Cerebellar function: normal finger to nose testing, Romberg testing is negative, Deep tendon reflexes are normal, normal upgoing toes are appreciated bilaterally. 10:08 Psych: normal mood. Vital Signs: 08:56 BP 216 / 84 Supine (auto/); Pulse 66; Resp 18; Temp 96.8(O); Pulse Ox 98% on R/A; ml6 Weight 77.11 kg / 170 lbs (R); Height 5 ft. 3 in. (160.02 cm) (R); Pain 0/10; 08:58 BP 193 / 80 Sitting (auto/); Pulse 68; ml6 08:59 BP 202 / 79 Standing (auto/); Pulse 72; ml6 11:01 BP 178 / 85 (auto/); dsf 11:01 Pulse 62 MON; Pulse Ox 92% ; dsf 11:01 BP 189 / 77; Pulse 62; Resp 16; Temp 97.4(O); Pulse Ox 98% on R/A; Pain 0/10; dsf 11:31 BP 205 / 79 (auto/); dsf 11:31 Pulse 58 MON; Pulse Ox 99% ; dsf 13:42 BP 181 / 75; Pulse 86; Resp 16; Temp 97.7(O); Pulse Ox 98% on R/A; jo3 08:56 Body Mass Index 30.11 (77.11 kg, 160.02 cm) ml6 MDM: 09:03 ECG WITH READING ER PHYS+CARDIAG ordered. EDMS 09:51 Splitting Machine Operator Helper/Pulse Ox/q 30 min VS ordered. pc 09:51 Ondansetron ODT Oral Disintegrating Tablet 4 mg PO once ordered. pc 09:52 Meclizine 25 mg PO once ordered. pc 09:52 CBC with Diff Ordered. EDMS 09:52 MED Profile Ordered. EDMS 09:52 TSH with Free T4 Ordered. EDMS 09:52 CIP Ordered. EDMS 09:52 Troponin Ordered. EDMS 09:52 CT Head Without Contrast Ordered. EDMS 10:00 Financial registration complete. mm15 10:08 Differential Diagnosis: labyrinthitis, vertigo, cerebellar CVA unlikely. Plan: labs, pc meds, imaging, EKG. Test interpretation: EKG. 10:47 CBC with Diff Reviewed. pc 10:47 MED Profile Reviewed. pc 10:47 TSH with Free T4 Reviewed. pc 10:47 CIP Reviewed. pc 10:47 Troponin Reviewed. pc 11:03 [facility] Payment Agreement was scanned into [employer] and attached to record. mm15 11:41 Ambulate Patient to Assess Patient Safety ordered. pc 11:41 CT Head Without Contrast Reviewed. pc 12:42 Data reviewed: old medical records, vital signs, nurses notes, EKG(s), lab test pc results, all radiology studies and available results. Test interpretation: LAB - all labs as ordered have been reviewed, interpreted and considered in the overall management of the clinical presentation; interpreted by Radiologist and personally reviewed, Head CT; no acute disease. The patient has been re-examined and re-evaluated. The patient's symptoms have markedly improved after treatment, with her eating without any nausea, and she has ambulated independently without any dizziness or complaints. Disposition: The historical points, examination findings, and any diagnostic results supporting the provided diagnosis, were discussed with the patient or legal guardian. The need for outpatient follow up with the provider listed on their discharge instructions was discussed. They were encouraged to return to [facility], or the nearest ED, if symptoms worsen/persist, or for any other questions/concerns. 12:44 Vital Signs ordered. pc EC:08 Rate is 61 beats/min. Rhythm is regular, Normal Sinus Rhythm. QRS [place] is Normal. [place] pc interval is normal. QRS interval is normal. QT interval is normal. No Q waves. T waves are Normal. No ST changes noted. Clinical impression: Normal Sinus Rhythm. Administered Medications: 09:53 Drug: Ondansetron ODT 4 mg [ondansetron 4 mg disintegrating tablet (1 tabs)] Route: PO; ml6 09:53 Drug: Meclizine 25 mg [meclizine 12.5 mg tablet (2 tabs)] Route: PO; ml6 Signatures: Dispatcher [employer] EDND Ankush Foss, MD MD pc Lowe, Jered, RN RN ml6 Tia Nagel RN RN jaycobf Sarah Warren mm15 The chart was reviewed and I authenticate all verbal orders and agree with the evaluation and treatment provided.Attachments: 11:03 [facility] Payment Agreement mm15 Chart Complete MTDD
--- NOTE | 2016-05-21 20:45 | EDDOCDS ---
Physician Documentation [facility] Name: Nika Steele Age: 81 yrs Sex: Female : 1935 Arrival Date: 05/19/2016 Time: 08:52 Bed 9 Private MD: Disposition: 05/19 12:42 Critical Care: Critical care not applicable. pc Disposition: 05/19/16 13:49 Discharged to Home/Self Care. Impression: Labyrinthitis, Essential (primary) hypertension. - Condition is Stable. - Discharge Instructions: Hypertension, Labyrinthitis, [id number]. - Prescriptions for Antivert 25 mg Oral Tablet - take 1 tablet by ORAL route every 8 hours As needed; 15 tablet. ZOFRAN ODT 4 mg - dissolve 1 tablet by ORAL route 4 times per day As needed do not chew, do not swallow whole; 10 tablet. - Medication Reconciliation, Local Pharmacy Hours form. - Follow up: Kevin Herzog; When: Call to arrange an appointment; Reason: Continuance of care. - Problem is new. - Symptoms have improved. HPI: 10:08 This 81 yrs old Female presents to ER via Ambulance with complaints of pc Dizziness. 10:08 The history is obtained from the patient. She stood up from bed yesterday morning and pc felt dizzy. She sat back down and "gathered myself", and was fine for the rest of the day. This morning, she rolled over in bed and became very dizzy and nauseated. She did not vomit. She lay still and the symptoms settled but not completely. She tried to stand and felt dizzy and nauseated, fell back onto the bed. She was able to walk to the bathroom but felt off-balance generally. After voiding, she used her 's walker to get around and felt fine, [id number]. She describes a "slight headache" frontally but denies any focal neurological symptoms. At their worst, the symptoms were moderate. In the emergency department, the symptoms are mild. The patient has not experienced similar symptoms in the past. The patient has not recently seen a physician. Historical: - Allergies: SULFA (SULFONAMIDES); - Home Meds: 1. Synthroid 112 mcg Oral tab 1 tab nightly (Last dose: 05/18/2016 20:00) 2. lisinopril 10 mg Oral tab 1 tab nightly (Last dose: 05/18/2016 20:00) 3. amlodipine 5 mg Oral tab 1 tab once daily (Last dose: 05/18/2016 08:00) 4. magnesium oxide 400 mg Oral tab daily (Last dose: 05/18/2016 08:00) 5. omeprazole 20 mg Oral cpDR 1 cap once daily (Last dose: 05/18/2016 08:00) 6. Cosopt 22.3-6.8 mg/mL Opht drop 1 drop 2 times per day (Last dose: 05/18/2016 20:00) 7. Xalatan 0.005 % Opht drop 1 drop once daily (Last dose: 05/18/2016 20:00) 8. Systane 0.4-0.3 % ophthalmic drop twice a day (Last dose: 05/18/2016 20:00) - PMHx: Hypertension; GERD; Hypothyroidism; Glaucoma; - PSHx: Appendectomy; Thyroidectomy; skin cancer; Cataract Surgery- Bilateral; - The history from nurses notes was reviewed: and I agree with what is documented. - Social history: Smoking status: Patient states was never smoker of tobacco. No barriers to communication noted, Speaks appropriately for age. - : The pt / caregiver states he / she is not on anticoagulants. Home medication list is obtained from the patient. - Hospitalizations: : No recent hospitalization is reported. - Exposure Risk Screening:: None identified. - Immunization history:: All immunizations up-to-date. - Family history: Not pertinent. - Social history:: the patient is a non-smoker, the patient does not drink alcohol. ROS: 10:08 All systems are negative except as listed. pc Exam: 10:08 General Appearance: no acute distress, alert. pc 10:08 EENT: normal eye inspection, ears, nose and throat normal, pharynx normal, mucous membranes moist no apparent trauma. 10:08 Neck: The exam reveals no acute abnormalities. ROM is normal and painless. No nuchal rigidity is noted.. 10:08 Respiratory: no respiratory distress, normal breath sounds, chest non-tender. 10:08 CVS: regular pulse rate, regular rhythm, normal S1 and S2, no murmurs, strong peripheral pulses, normal capillary refill. 10:08 Abdomen: soft, non-tender, no organomegaly, normal bowel sounds, no masses appreciated, no hernias palpated with/without gravity or Valsalva 10:08 Back: normal inspection. 10:08 : bladder is non-distended, non-tender. 10:08 Skin: skin color is normal, warm, dry. 10:08 Extremities: The extremities have a grossly normal appearance, are non-tender, without acute ROM abnormalities, no pedal edema. 10:08 Neuro: oriented x 3, cranial nerves normal as tested, no motor deficits, no sensory deficits, Cerebellar function: normal finger to nose testing, Romberg testing is negative, Deep tendon reflexes are normal, normal upgoing toes are appreciated bilaterally. 10:08 Psych: normal mood. Vital Signs: 08:56 BP 216 / 84 Supine (auto/); Pulse 66; Resp 18; Temp 96.8(O); Pulse Ox 98% on R/A; ml6 Weight 77.11 kg / 170 lbs (R); Height 5 ft. 3 in. (160.02 cm) (R); Pain 0/10; 08:58 BP 193 / 80 Sitting (auto/); Pulse 68; ml6 08:59 BP 202 / 79 Standing (auto/); Pulse 72; ml6 11:01 BP 178 / 85 (auto/); dsf 11:01 Pulse 62 MON; Pulse Ox 92% ; dsf 11:01 BP 189 / 77; Pulse 62; Resp 16; Temp 97.4(O); Pulse Ox 98% on R/A; Pain 0/10; dsf 11:31 BP 205 / 79 (auto/); dsf 11:31 Pulse 58 MON; Pulse Ox 99% ; dsf 13:42 BP 181 / 75; Pulse 86; Resp 16; Temp 97.7(O); Pulse Ox 98% on R/A; jo3 08:56 Body Mass Index 30.11 (77.11 kg, 160.02 cm) ml6 MDM: 09:03 ECG WITH READING ER PHYS+CARDIAG ordered. EDMS 09:51 Showcase Trimmer/Pulse Ox/q 30 min VS ordered. pc 09:51 Ondansetron ODT Oral Disintegrating Tablet 4 mg PO once ordered. pc 09:52 Meclizine 25 mg PO once ordered. pc 09:52 CBC with Diff Ordered. EDMS 09:52 MED Profile Ordered. EDMS 09:52 TSH with Free T4 Ordered. EDMS 09:52 CIP Ordered. EDMS 09:52 Troponin Ordered. EDMS 09:52 CT Head Without Contrast Ordered. EDMS 10:00 Financial registration complete. mm15 10:08 Differential Diagnosis: labyrinthitis, vertigo, cerebellar CVA unlikely. Plan: labs, pc meds, imaging, EKG. Test interpretation: EKG. 10:47 CBC with Diff Reviewed. pc 10:47 MED Profile Reviewed. pc 10:47 TSH with Free T4 Reviewed. pc 10:47 CIP Reviewed. pc 10:47 Troponin Reviewed. pc 11:03 [facility] Payment Agreement was scanned into [employer] and attached to record. mm15 11:41 Ambulate Patient to Assess Patient Safety ordered. pc 11:41 CT Head Without Contrast Reviewed. pc 12:42 Data reviewed: old medical records, vital signs, nurses notes, EKG(s), lab test pc results, all radiology studies and available results. Test interpretation: LAB - all labs as ordered have been reviewed, interpreted and considered in the overall management of the clinical presentation; interpreted by Radiologist and personally reviewed, Head CT; no acute disease. The patient has been re-examined and re-evaluated. The patient's symptoms have markedly improved after treatment, with her eating without any nausea, and she has ambulated independently without any dizziness or complaints. Disposition: The historical points, examination findings, and any diagnostic results supporting the provided diagnosis, were discussed with the patient or legal guardian. The need for outpatient follow up with the provider listed on their discharge instructions was discussed. They were encouraged to return to [facility], or the nearest ED, if symptoms worsen/persist, or for any other questions/concerns. 12:44 Vital Signs ordered. pc EC:08 Rate is 61 beats/min. Rhythm is regular, Normal Sinus Rhythm. QRS [place] is Normal. [place] pc interval is normal. QRS interval is normal. QT interval is normal. No Q waves. T waves are Normal. No ST changes noted. Clinical impression: Normal Sinus Rhythm. Administered Medications: 09:53 Drug: Ondansetron ODT 4 mg [ondansetron 4 mg disintegrating tablet (1 tabs)] Route: PO; ml6 09:53 Drug: Meclizine 25 mg [meclizine 12.5 mg tablet (2 tabs)] Route: PO; ml6 Signatures: Dispatcher [employer] EDNC Ankush Foss, MD MD pc Lowe, Jered, RN RN ml6 Tia Nagel RN RN jaycobf Sarah Warren mm15 The chart was reviewed and I authenticate all verbal orders and agree with the evaluation and treatment provided.Attachments: 11:03 [facility] Payment Agreement mm15 Chart Complete MTDD
--- NOTE | 2016-05-21 20:45 | EDDOCDS ---
Nurse's Notes [facility] Name: Nika Steele Age: 81 yrs Sex: Female : 1935 Arrival Date: 05/19/2016 Time: 08:52 Bed 9 Private MD: Diagnosis: Labyrinthitis;Essential (primary) hypertension Presentation: 05/19 08:53 Presenting complaint: Patient states: states that she felt dizzy when she stood up from ml6 bed and felt dizzy, happened again today, lasted a few minutes but today states that she felt nauseated also (no LOC or vomiting). Adult Sepsis Screening: The patient does not have new or worsening altered mentation. Patient's respiratory rate is less than 22. Systolic blood pressure is greater than 100. Patient has a qSOFA score of 0- Negative Sepsis Screen. Suicide/Homicide risk assessment- the patient denies having any suicidal and/or homicidal ideations and does not present with any other emotional, behavioral or mental health complaints. Status: Patient is not a gasoline service attendant or dependent. Transition of care: patient was not received from another setting of care. 08:53 Acuity: PATY Level 3 ml6 08:53 Method Of Arrival: Ambulance ml6 Triage Assessment: 08:56 General: Appears in no apparent distress, Behavior is appropriate for age, cooperative. ml6 Pain: Denies pain. The patient is triaged at the bedside. See Assessment in Nurses Notes section of ED record. Neurological: No deficits noted. Level of Consciousness is awake, alert, Oriented to person, place, time, Nitric Acid Plant Operator are equal bilaterally Moves all extremities. Full function Gait is steady, Speech is normal, Facial symmetry appears normal, Pupils are PERRLA. Cardiovascular: No deficits noted. Capillary refill < 3 seconds is brisk in bilateral fingers toes Heart tones S1 S2 present Edema is absent. Pulses are all present. Rhythm is regular Chest pain is denied. Respiratory: No deficits noted. Airway is patent Respiratory effort is even, unlabored, Respiratory pattern is regular, symmetrical, Breath sounds are clear bilaterally. GI: No deficits noted. Abdomen is flat, non- distended Bowel sounds present X 4 quads. Abd is soft and non tender X 4 quads. Historical: - Allergies: SULFA (SULFONAMIDES); - Home Meds: 1. Synthroid 112 mcg Oral tab 1 tab nightly (Last dose: 05/18/2016 20:00) 2. lisinopril 10 mg Oral tab 1 tab nightly (Last dose: 05/18/2016 20:00) 3. amlodipine 5 mg Oral tab 1 tab once daily (Last dose: 05/18/2016 08:00) 4. magnesium oxide 400 mg Oral tab daily (Last dose: 05/18/2016 08:00) 5. omeprazole 20 mg Oral cpDR 1 cap once daily (Last dose: 05/18/2016 08:00) 6. Cosopt 22.3-6.8 mg/mL Opht drop 1 drop 2 times per day (Last dose: 05/18/2016 20:00) 7. Xalatan 0.005 % Opht drop 1 drop once daily (Last dose: 05/18/2016 20:00) 8. Systane 0.4-0.3 % ophthalmic drop twice a day (Last dose: 05/18/2016 20:00) - PMHx: Hypertension; GERD; Hypothyroidism; Glaucoma; - PSHx: Appendectomy; Thyroidectomy; skin cancer; Cataract Surgery- Bilateral; - The history from nurses notes was reviewed: and I agree with what is documented. - Social history: Smoking status: Patient states was never smoker of tobacco. No barriers to communication noted, Speaks appropriately for age. - : The pt / caregiver states he / she is not on anticoagulants. Home medication list is obtained from the patient. - Hospitalizations: : No recent hospitalization is reported. - Exposure Risk Screening:: None identified. - Immunization history:: All immunizations up-to-date. - Family history: Not pertinent. - Social history:: the patient is a non-smoker, the patient does not drink alcohol. Screenin:50 Screening information is obtained from the patient. Fall risk: No risks identified. ml6 Assistance ADL's: requires no assistance with activities of daily living. Abuse/DV Screen: The patient / caregiver reports he/she is: not in a situation that causes fear, pain or injury. Nutritional screening: No deficits noted. Advance Directives: Currently, there is no health care proxy. home support is adequate. Assessment: 08:53 General: see triage. ml6 10:00 General: Appears in no apparent distress, comfortable, Behavior is appropriate for age, ml6 cooperative. Pain: Denies pain. Neurological: No deficits noted. Level of Consciousness is awake, alert, Oriented to person, place, time, Nitric Acid Plant Operator are equal bilaterally Moves all extremities. Full function Gait is steady, Speech is normal, Facial symmetry appears normal, Pupils are PERRLA. Cardiovascular: No deficits noted. Capillary refill < 3 seconds is brisk in bilateral fingers toes Heart tones S1 S2 present Edema is absent. Pulses are all present. Respiratory: No deficits noted. Airway is patent Respiratory effort is even, unlabored, Respiratory pattern is regular, symmetrical, Breath sounds are clear bilaterally. GI: No deficits noted. Abdomen is flat, Bowel sounds present X 4 quads. 11:52 General: pt ambulated 100 feet without difficulty. Pt reports her dizziness is much dsf better and nausea has resolved. pt sitting up in the stretcher eating a box lunch . 12:47 General: Appears pt ate 100% of lunch. pt denies nausea or pain . dsf 13:47 Adult Sepsis Screening: The patient does not have new or worsening altered mentation. dsf Patient's respiratory rate is less than 22. Systolic blood pressure is greater than 100. Patient has a qSOFA score of 0- Negative Sepsis Screen. General: Appears in no apparent distress, comfortable, Behavior is appropriate for age, cooperative. Neurological: Level of Consciousness is awake, alert. Cardiovascular: Capillary refill < 3 seconds. Respiratory: Airway is patent Respiratory effort is even, unlabored, Respiratory pattern is regular, symmetrical. Derm: Skin is pink, warm & dry. 14:02 General: Appears in no apparent distress, comfortable, Behavior is appropriate for age, dsf cooperative. Neurological: Level of Consciousness is awake, alert. Cardiovascular: Capillary refill < 3 seconds. Respiratory: Airway is patent Respiratory effort is even, unlabored, Respiratory pattern is regular, symmetrical. Derm: Skin is pink, warm & dry. Vital Signs: 08:56 BP 216 / 84 Supine (auto/); Pulse 66; Resp 18; Temp 96.8(O); Pulse Ox 98% on R/A; ml6 Weight 77.11 kg (R); Height 5 ft. 3 in. (160.02 cm) (R); Pain 0/10; 08:58 BP 193 / 80 Sitting (auto/); Pulse 68; ml6 08:59 BP 202 / 79 Standing (auto/); Pulse 72; ml6 11:01 BP 178 / 85 (auto/); dsf 11:01 Pulse 62 MON; Pulse Ox 92% ; dsf 11:01 BP 189 / 77; Pulse 62; Resp 16; Temp 97.4(O); Pulse Ox 98% on R/A; Pain 0/10; dsf 11:31 BP 205 / 79 (auto/); dsf 11:31 Pulse 58 MON; Pulse Ox 99% ; dsf 13:42 BP 181 / 75; Pulse 86; Resp 16; Temp 97.7(O); Pulse Ox 98% on R/A; jo3 08:56 Body Mass Index 30.11 (77.11 kg, 160.02 cm) ml6 Vitals: 09:10 Log In Time N/A - ambulance arrival. ml6 ED Course: 08:53 Patient visited by Blessing Aguilar, Supervisor [employer]. deg 08:53 Estelle Clements,RN is Primary Nurse. ml6 08:53 Jered Meadows, RN is Primary Nurse. ml6 08:53 Patient moved to Waiting deg 08:53 Patient moved to 9 ml6 08:53 Inserted peripheral IV: 20gauge IV in left forearm and blood collected. Patient ml6 tolerated the procedure well. 09:04 Triage Initiated ml6 09:10 Patient visited by Ximena Gee. dem1 09:10 EKG done. (by ED staff). Reviewed by Ankush Foss MD. dem1 09:35 Primary Nurse role handed off by Estelle Clements,ARIES pc 09:36 Ankush Foss MD is Attending Physician. pc 09:41 Patient visited by David Miner DO. gk1 09:50 Patient visited by Ankush Foss MD. pc 10:11 TSH with Free T4 Sent. ml6 10:11 MED Profile Sent. ml6 10:11 CBC with Diff Sent. ml6 10:11 Troponin Sent. ml6 10:16 Patient visited by Jered Meadows, ARIES. ml6 10:40 Patient visited by Jered Meadows RN. ml6 11:03 [facility] Payment Agreement was scanned into [employer] and attached to record. mm15 11:11 Patient visited by Jered Meadows, ARIES. ml6 11:37 CT Head Without Contrast Returned. EDMS 11:56 Patient visited by Tia Nagel,ARIES. dsf 12:48 Patient visited by Tia Nagel RN. dsf 13:49 Kevin Herzog PA is Referral Physician. pc 14:03 The patient / caregiver is instructed regarding the plan of care and ED course. dsf 14:03 Discontinued lock intact, bleeding controlled, pressure dressing applied, No dsf redness/swelling at site. No procedures done that require assistance. 05/20 15:14 EKG-ADULT Returned. EDMS Administered Medications: 05/19 09:53 Drug: Ondansetron ODT 4 mg [ondansetron 4 mg disintegrating tablet (1 tabs)] Route: PO; ml6 09:53 Drug: Meclizine 25 mg [meclizine 12.5 mg tablet (2 tabs)] Route: PO; ml6 Order Results: Lab Order: CBC with Diff; SPEC'M 05/19/16 10:08 Test: WHITE BLOOD COUNT; Value: 10.5; Range: 4.0-10.0; Abnormal: Above high normal; Units: K/mm3; Status: F Test: RED BLOOD COUNT; Value: 5.52; Range: 4.00-5.40; Abnormal: Above high normal; Units: M/mm3; Status: F Test: HEMOGLOBIN; Value: 16.3; Range: 12.0-16.0; Abnormal: Above high normal; Units: g/dl; Status: F Test: HEMATOCRIT; Value: 49.0; Range: 36.0-47.0; Abnormal: Above high normal; Units: %; Status: F Test: MEAN CORPUSCULAR VOLUME; Value: 88.8; Range: 80.0-96.0; Units: fl; Status: F Test: MEAN CORPUSCULAR HEMOGLOBIN; Value: 29.5; Range: 27.0-33.0; Units: pg; Status: F Test: MEAN CORPUSCULAR HGB CONC; Value: 33.2; Range: 32.0-36.5; Units: g/dl; Status: F Test: RED CELL DISTRIBUTION WIDTH; Value: 13.6; Range: 11.5-14.5; Units: %; Status: F Test: PLATELET COUNT, AUTOMATED; Value: 247; Range: 150-450; Units: k/mm3; Status: F Test: NEUTROPHILS %; Value: 76.3; Range: 36.0-66.0; Abnormal: Above high normal; Units: %; Status: F Test: LYMPH %; Value: 17.6; Range: 24.0-44.0; Abnormal: Below low normal; Units: %; Status: F Test: MONO %; Value: 3.4; Range: 0.0-5.0; Units: %; Status: F Test: EOS %; Value: 1.1; Range: 0.0-3.0; Units: %; Status: F Test: BASO %; Value: 0.8; Range: 0.0-1.0; Units: %; Status: F Test: LARGE UNSTAINED CELL %; Value: 0.8; Range: 0.0-4.0; Units: %; Status: F Test: NEUTROPHILS #; Value: 8.0; Range: 1.8-7.7; Abnormal: Above high normal; Units: K/mm3; Status: F Test: LYMPH #; Value: 1.9; Range: 1.5-4.5; Units: K/mm3; Status: F Test: MONO #; Value: 0.4; Range: 0.0-0.8; Units: K/mm3; Status: F Test: EOS #; Value: 0.1; Range: 0.0-0.50; Units: K/mm3; Status: F Test: BASO #; Value: 0.1; Range: 0.0-0.2; Units: K/mm3; Status: F Test: LARGE UNSTAINED CELL #; Value: 0.1; Range: 0.0-0.4; Units: K/mm3; Status: F Lab Order: MED Profile; SPEC'M 05/19/16 10:08 Test: GLUCOSE, FASTING; Value: 149; Range: 83-110; Abnormal: Above high normal; Units: MG/DL; Status: F Test: BLOOD UREA NITROGEN; Value: 19; Range: 7-18; Abnormal: Above high normal; Units: MG/DL; Status: F Test: CREATININE FOR GFR; Value: 0.92; Range: 0.55-1.02; Units: MG/DL; Status: F Test: GLOMERULAR FILTRATION RATE; Value: > 60.0; Range: >32; Status: F Test: SODIUM LEVEL; Value: 142; Range: 136-145; Units: MEQ/L; Status: F Test: POTASSIUM SERUM; Value: 3.7; Range: 3.5-5.1; Units: MEQ/L; Status: F Test: CHLORIDE LEVEL; Value: 106; Range: 98-107; Units: MEQ/L; Status: F Test: CARBON DIOXIDE LEVEL; Value: 27; Range: 21-32; Units: MEQ/L; Status: F Test: ANION GAP; Value: 9; Range: 8-16; Units: MEQ/L; Status: F Test: CALCIUM LEVEL; Value: 9.4; Range: 8.8-10.2; Units: MG/DL; Status: F Test Note: ; Units are mL/min/1.73 m2 Chronic Kidney Disease Staging per NKF: Stage I & II GFR >=60 Normal to Mildly Decreased Stage III GFR 30-59 Moderately Decreased Stage IV GFR 15-29 Severely Decreased Stage V GFR <15 Very Little GFR Left ESRD GFR <15 on MUSIC INTERNSHIP Lab Order: TSH with Free T4; SPEC'05/19/16 10:08 Test: THYROID STIMULATING HORMONE; Value: 0.875; Range: 0.358-3.740; Units: uIU/ML; Status: F Test: FREE T4; Value: 1.56; Range: 0.76-1.46; Abnormal: Above high normal; Units: NG/DL; Status: F Lab Order: CIP; SPEC'05/19/16 10:08 Test: CPK CREATINE PHOSPHOKINASE; Value: 42; Range: 26-192; Units: U/L; Status: F Test: CK-MB VALUE MASS; Value: 1.0; Range: 0.0-3.6; Units: NG/ML; Status: F Test: MB/CK RELATIVE INDEX; Value: 2.38; Range: < OR =4; Status: F Test Note: ; DIAGNOSIS CRITERIA MMB ng/ml Relative Index (RI) NON-AMI < or = 5 N/A FOWLER ZONE > 5 < or = 4 AMI > 5 > 4 Lab Order: Troponin; SPEC'05/19/16 10:08 Test: TROPONIN I; Value: < 0.02; Range: < 0.10; Units: NG/ML; Status: F Test Note: ; Troponin I Reference Interval for Siemens [place] LOCI: 99th Percentile= 0.00-0.045 ng/ml Risk Stratification: <= 0.10 ng/ml Decreased Risk for Adverse Clinical Events. 0.10-1.50 ng/ml Increased Risk for Adverse Clinical Events. Evaluation of additional criterion and/or repeat testing in 2-6 hours is suggested to rule out myocardial damage. >= 1.50 ng/ml Indicative of Myocardial Injury. Radiology Order: EKG-ADULT Test: EKG-ADULT REASON FOR EXAMINATION: dizziness; Stationary ECG Study; [facility] - ED; ; Test Date: 2016-05-19; Pat Name: NIKA STEELE Department:; Room: -; Gender: F Bed And Breakfast Cook: herbert; : 1935 Requested By: Ankush Silveira; Order Number: [id number] Reading MD: Clarissa Calvo; Measurements; Intervals [place]; Rate: 61 P: 64; NV: 165 QRS: 37; QRSD: 102 T: 43; QT: 417; QTc: 421; Interpretive Statements; SINUS RHYTHM; NSTTW ABNORMALITY; NO PRIOR FOR COMPARISON; Electronically Signed On 05-20-2016 15:09:42 EST by Clarissa Calvo; Radiology Order: CT Head Without Contrast Test: CT Head Without Contrast REASON FOR EXAMINATION: vertigo; CT HEAD WITHOUT CONTRAST:; ; HISTORY: Vertigo.; ; An area of decreased attenuation is present in the left basal ganglia. This; represents an old lacunar infarction. Areas of decreased attenuation are present; in the periventricular white matter. This represents small vessel ischemic; disease. There is no intraparenchymal hemorrhage, mass or midline shift. The; ventricular system and cortical sulci as well as subarachnoid space in the; posterior fossa are dilated consistent with mild volume loss. There is no; extracerebral collection. Mucosal thickening is present in the left maxillary; sinus.; ; IMPRESSION:; ; 1. Old left basal ganglia lacunar infarction.; ; 2. Small vessel ischemic disease.; ; 3. Mild volume loss.; ; ; Signed by; Preet Huang MD 05/19/2016 11:27 A; Outcome: 13:49 Discharge ordered by Provider. 14:03 Discharge Assessment: Patient awake, alert and oriented x 3. No cognitive and/or dsf functional deficits noted. Patient verbalized understanding of disposition instructions. patient administered narcotics - no. The following High Risk Discharge criteria are identified: None. Discharged to home ambulatory. Condition: stable. Discharge instructions given to patient, Instructed on discharge instructions, follow up and referral plans. medication usage, Demonstrated understanding of instructions, medications, Pt was receptive of discharge instructions/ teaching. Prescriptions given X 2. Property sent home with patient. 14:03 CT Study completed. dsf 14:04 Patient left the ED. dsf Signatures: Dispatcher [employer] EDMS Ankush Foss MD MD pc Murray, Denise, Supervisor [employer] Unit deg Shira WilkesRN RN Jered Medina, RN RN [email or web address] Tia Nagel,ARIES RN dsf Ximena Gee1 Sarah Warren mm15 David Miner, DO gk1 Chart Complete MTDD
== END 2016-05-19 14:04 | disposition home or self-care (01) ==
LOC: M ED 08:52
DX: H83.09 Labyrinthitis, unspecified ear (principal); I10 Essential (primary) hypertension; K21.9 Gastro-esophageal reflux disease without esophagitis; E03.9 Hypothyroidism, unspecified; H40.9 Unspecified glaucoma; Z90.89 Acquired absence of other organs; Z85.828 Personal history of other malignant neoplasm of skin; Z79.899 Other long term (current) drug therapy; Z88.2 Allergy status to sulfonamides

== ENCOUNTER → 2017-03-08 | Outpatient (CLI) | payer OTHER ==
--- NOTE | 2017-03-08 10:24 | REPMRS ---
Patient History The patient states she has not had a clinical breast exam in over a year. Patient is postmenopausal and has history of skin cancer at age 59. Family history of pancreatic cancer in sister at age 50 or over, ovarian cancer in maternal cousin, and pancreatic cancer in paternal cousin at age 50 or over. Digital Woman Screen Mammo: March 08, 2017 - Exam #: [id number] Bilateral CC and MLO view(s) were taken. Technologist: Diya Emanuel, Technologist Prior study comparison: March 07, 2016, digital woman screen mammo performed at [facility] [employer] [facility]. February 04, 2015, digital woman screen mammo performed at [facility] [employer] [facility]. FINDINGS: There are scattered fibroglandular densities. There has been no change in the appearance of the mammogram from the prior studies. There is a mild amount of residual fibroglandular tissue which is fairly symmetric. There is no interval development of dominant mass, architectural distortion, or clustered microcalcification suggestive of malignancy. ASSESSMENT: BI-RADS/ACR category 1 mammogram. Negative. Recommendation Routine screening mammogram in 1 year (for women over age 40). This mammogram was interpreted with the aid of an FDA-approved computer-aided dectection system. Electronically Signed By: Ole Mejia MD 03/08/17 [id number]
== END ==
LOC: M WHC 09:18
PROVIDERS: ATTEND Nurse Practitioner Family
DX: Z12.31 Encounter for screening mammogram for malignant neoplasm of breast (principal); Z78.0 Asymptomatic menopausal state

== ENCOUNTER → 2021-02-12 | Outpatient (CLI) | payer OTHER ==
--- NOTE | 2021-02-12 10:47 | REP ---
INDICATION: PAIN COMPARISON: None. TECHNIQUE: AP, lateral, bilateral oblique and sunrise views. FINDINGS: Moderate tricompartmental osteoarthritic degenerative changes are appreciated. Findings include subchondral sclerosis, joint space narrowing, osteophytosis. No acute fracture or dislocation. No obvious effusion. IMPRESSION: Moderate tricompartmental osteoarthritic degenerative changes. <Electronically signed by Yuriy Hayward > 02/12/21 1041
[2021-02-12 12:36] LABS: HEMOGLOBIN 14.9 g/dl (12.0-15.5); MEAN CORPUSCULAR HEMOGLOBIN 29.9 pg (27.0-33.0); MEAN CORPUSCULAR HGB CONC 32.4 g/dl (32.0-36.5); MEAN CORPUSCULAR VOLUME 92.2 fl (80.0-96.0); PLATELET COUNT, AUTOMATED 245 10^3/uL (150-450); RED BLOOD COUNT 4.99 10^6/uL (4.00-5.40); WHITE BLOOD COUNT 8.5 10^3/uL (4.0-10.0)
[2021-02-12 13:05] LABS: HEMOGLOBIN A1c 6.6 %
[2021-02-12 13:10] LABS: ALBUMIN 3.7 GM/DL (3.2-5.2); BILIRUBIN,TOTAL 1.2 MG/DL (0.2-1.0); CALCIUM LEVEL 9.7 MG/DL (8.8-10.2); CHOLESTEROL RISK RATIO 4.934 (<5); CREATININE FOR GFR 1.12 MG/DL (0.55-1.30); FREE T3 2.4 PG/ML (2.2-4.0); FREE T4 1.52 NG/DL (0.76-1.46); GLOMERULAR FILTRATION RATE 49.1 (>32); POTASSIUM SERUM 4.3 MEQ/L (3.5-5.1); THYROID STIMULATING HORMONE 2.62 uIU/ML (0.358-3.740); TOTAL PROTEIN 7.3 GM/DL (6.4-8.2)
[2021-02-12 13:12] LABS: TOTAL 25(OH) VITAMIN D 85.4 NG/ML (30.0-100.0)
== END ==
LOC: M WUC 09:37
PROVIDERS: ATTEND Family Medicine
DX: E55.9 Vitamin D deficiency, unspecified (principal); I10 Essential (primary) hypertension; R73.01 Impaired fasting glucose; E03.9 Hypothyroidism, unspecified; M25.562 Pain in left knee

== ENCOUNTER → 2021-08-26 | Outpatient (CLI) | payer OTHER ==
[2021-08-26 12:43] LABS: HEMATOCRIT 46.4 % (36.0-47.0); HEMOGLOBIN 14.7 g/dl (12.0-15.5); MEAN CORPUSCULAR HEMOGLOBIN 29.3 pg (27.0-33.0); MEAN CORPUSCULAR HGB CONC 31.7 g/dl (32.0-36.5); MEAN CORPUSCULAR VOLUME 92.6 fl (80.0-96.0); PLATELET COUNT, AUTOMATED 211 10^3/uL (150-450); RED BLOOD COUNT 5.01 10^6/uL (4.00-5.40); WHITE BLOOD COUNT 7.3 10^3/uL (4.0-10.0)
[2021-08-26 13:14] LABS: ALBUMIN 3.8 GM/DL (3.2-5.2); BILIRUBIN,TOTAL 1.1 MG/DL (0.2-1.0); CALCIUM LEVEL 10.1 MG/DL (8.8-10.2); CREATININE FOR GFR 1.03 MG/DL (0.55-1.30); FREE T3 2.3 PG/ML (2.2-4.0); FREE T4 1.69 NG/DL (0.76-1.46); POTASSIUM SERUM 4.5 MEQ/L (3.5-5.1); THYROID STIMULATING HORMONE 1.71 uIU/ML (0.358-3.740); TOTAL 25(OH) VITAMIN D 109.9 NG/ML (30.0-100.0); TOTAL PROTEIN 7.4 GM/DL (6.4-8.2)
[2021-08-26 15:15] LABS: HEMOGLOBIN A1c 6.5 %
== END ==
LOC: M WUC 09:21
PROVIDERS: ATTEND Family Medicine
DX: E55.9 Vitamin D deficiency, unspecified (principal); E11.9 Type 2 diabetes mellitus without complications; E03.9 Hypothyroidism, unspecified

== ENCOUNTER → 2022-04-19 | Outpatient (CLI) | payer OTHER ==
[2022-04-19 12:36] LABS: BASO # 0.1 10^3/uL (0.0-0.2); BASO % 1.4 % (0.0-1.0); EOS # 0.3 10^3/uL (0.0-0.5); EOS % 3.7 % (0.0-3.0); HEMATOCRIT 47.2 % (36.0-47.0); HEMOGLOBIN 14.7 g/dl (12.0-15.5); LYMPH # 3.2 10^3/uL (1.5-5.0); LYMPH % 35.3 % (24.0-44.0); MEAN CORPUSCULAR HEMOGLOBIN 29.5 pg (27.0-33.0); MEAN CORPUSCULAR HGB CONC 31.1 g/dl (32.0-36.5); MEAN CORPUSCULAR VOLUME 94.8 fl (80.0-96.0); MONO # 0.7 10^3/uL (0.0-0.8); MONO % 8.1 % (2.0-8.0); NEUTROPHILS # 4.6 10^3/uL (1.5-8.5); NEUTROPHILS % 50.7 % (36.0-66.0); PLATELET COUNT, AUTOMATED 242 10^3/uL (150-450); RED BLOOD COUNT 4.98 10^6/uL (4.00-5.40)
[2022-04-19 12:49] LABS: HEMOGLOBIN A1c 5.8 % (4.0-6.0)
[2022-04-19 13:13] LABS: TOTAL 25(OH) VITAMIN D 114.3 NG/ML (20.0-100.0)
[2022-04-19 13:16] LABS: ALBUMIN 3.9 G/DL (3.2-5.2); BILIRUBIN,TOTAL 1.1 MG/DL (0.3-1.2); CALCIUM LEVEL 9.9 MG/DL (8.3-10.6); CHOLESTEROL RISK RATIO 3.65 (<5); GLOMERULAR FILTRATION RATE 55.7 (>32); HDL CHOLESTEROL 58.3 MG/DL (>40); LDL CHOLESTEROL 131.5 MG/DL (<100); POTASSIUM SERUM 4.9 MMOL/L (3.5-5.1)
== END ==
LOC: M WUC 10:13
PROVIDERS: ATTEND Family Medicine
DX: E55.9 Vitamin D deficiency, unspecified (principal); E11.9 Type 2 diabetes mellitus without complications

== ENCOUNTER → 2023-04-17 | Outpatient (CLI) | payer OTHER ==
[2023-04-17 12:59] LABS: BASO # 0.1 10^3/uL (0.0-0.2); EOS # 0.3 10^3/uL (0.0-0.5); EOS % 4.7 % (0.0-3.0); HEMATOCRIT 46.6 % (36.0-47.0); HEMOGLOBIN 15.2 g/dl (12.0-15.5); LYMPH # 2.3 10^3/uL (1.5-5.0); LYMPH % 33.1 % (24.0-44.0); MEAN CORPUSCULAR HGB CONC 32.6 g/dl (32.0-36.5); MEAN CORPUSCULAR VOLUME 92.1 fl (80.0-96.0); MONO # 0.6 10^3/uL (0.0-0.8); MONO % 8.5 % (2.0-8.0); NEUTROPHILS # 3.6 10^3/uL (1.5-8.5); NEUTROPHILS % 51.3 % (36.0-66.0); PLATELET COUNT, AUTOMATED 221 10^3/uL (150-450); RED BLOOD COUNT 5.06 10^6/uL (4.00-5.40)
[2023-04-17 13:01] LABS: ALBUMIN 3.7 G/DL (3.2-5.2); ALKALINE PHOSPHATASE 80 U/L (46-116); ALT/SGPT 14 U/L (7.0-40); AST/SGOT 10 U/L (<34); BILIRUBIN,TOTAL 1.2 MG/DL (0.3-1.2); BLOOD UREA NITROGEN 23 MG/DL (9-23); CALCIUM LEVEL 10.1 MG/DL (8.3-10.6); CARBON DIOXIDE LEVEL 30 MMOL/L (20-31); CHLORIDE LEVEL 106 MMOL/L (98-107); CHOLESTEROL LEVEL 209 MG/DL (<200); CHOLESTEROL RISK RATIO 3.34 (<5); CREATININE FOR GFR 0.92 MG/DL (0.55-1.30); GLOMERULAR FILTRATION RATE > 60.0 (>32); GLUCOSE, FASTING 141 MG/DL (74-106); HDL CHOLESTEROL 62.4 MG/DL (>40); LDL CHOLESTEROL 120.4 MG/DL (<100); NON-HDL-C 146.6 MG/DL; POTASSIUM SERUM 4.2 MMOL/L (3.5-5.1); SODIUM LEVEL 138 MMOL/L (136-145); TOTAL PROTEIN 7.3 G/DL (5.7-8.2); TRIGLYCERIDES LEVEL 131 MG/DL (<150)
[2023-04-17 13:02] LABS: FREE T3 2.5 PG/ML (2.3-4.2)
[2023-04-17 13:03] LABS: FREE T4 1.49 NG/DL (0.89-1.76); THYROID STIMULATING HORMONE 5.006 uIU/ML (0.55-4.78); TOTAL 25(OH) VITAMIN D 75.8 NG/ML (20.0-100.0)
== END ==
LOC: M WUC 09:32
PROVIDERS: ATTEND Family Medicine
DX: E55.9 Vitamin D deficiency, unspecified (principal); E03.9 Hypothyroidism, unspecified; I10 Essential (primary) hypertension

== ENCOUNTER → 2023-11-03 | Outpatient (CLI) | payer OTHER | LOC: M EKG 14:36 | PROVIDERS: ATTEND Family Medicine | DX: R00.1 Bradycardia, unspecified (principal) ==